=== PATIENT | female | born 1960 | race American Indian/Alaskan Native ===

== ENCOUNTER 2021-03-29 20:57 | Emergency (ER) | payer OTHER ==
[~2021-03-29] VITALS: Ht 170.2 cm; Wt 97.5 kg
[~2021-03-29 20:57] MED LIST: CYAN500 PO; ESTR.05P; FISH1000; HYDCHL12.5; LEVSOD100; METF500; MULVITMIND; VITB100
[2021-03-29] MEDS ORDERED: IRON18 MG (21:43)
[2021-03-29] MEDS ORDERED: JARDIANCE10 MG (21:44)
[2021-03-29] MEDS ORDERED: PROM25 (21:44)
[2021-03-29] MEDS ORDERED: OMEP20ER (21:45)
== END 2021-03-29 23:27 | disposition home or self-care (01) ==
LOC: ER 20:57
DX: U07.1 COVID-19 (principal); E11.9 Type 2 diabetes mellitus without complications; Z88.8 Allergy status to other drugs, medicaments and biological substances; Z91.018 Allergy to other foods; Z79.899 Other long term (current) drug therapy; Z79.84 Long term (current) use of oral hypoglycemic drugs
CPT/HCPCS: 99283

== ENCOUNTER 2021-03-30 12:49 | Emergency (ER) | payer OTHER ==
[~2021-03-30] VITALS: Ht 172.7 cm; Wt 97.5 kg
[~2021-03-30 12:49] MED LIST changes: +IRON18 MG; +JARDIANCE10 MG; +OMEP20ER; +PROM25
== END 2021-03-30 14:45 | disposition home or self-care (01) ==
LOC: ER 12:49
DX: U07.1 COVID-19 (principal); E11.9 Type 2 diabetes mellitus without complications; E03.9 Hypothyroidism, unspecified; Z88.8 Allergy status to other drugs, medicaments and biological substances; Z91.018 Allergy to other foods; Z79.899 Other long term (current) drug therapy; Z79.84 Long term (current) use of oral hypoglycemic drugs
CPT/HCPCS: 99282

== ENCOUNTER 2021-04-05 12:41 | Inpatient (IN) | payer OTHER ==
[~2021-04-05] VITALS: Ht 170.2 cm; Wt 119.3 kg
[2021-04-05 13:05] LABS: BASOPHILS ABSOLUTE AUTO 0.01 K/mm3 (0.00-0.23); BASOPHILS PERCENT AUTO 0 % (0-2); EOSINOPHILS ABSOLUTE AUTO 0.03 K/mm3 (0.00-0.68); EOSINOPHILS PERCENT AUTO 1 % (0-6); Hematocrit 34.9 % (33.0-51.0); Hemoglobin 11.7 g/dL (11.5-16.0); IMMATURE GRAN ABSOLUTE AUTO 0.05 K/mm3 (0.00-0.10); IMMATURE GRAN PERCENT AUTO 1 % (0-1); LYMPHOCYTES ABSOLUTE AUTO 0.17 K/mm3 (0.84-5.20); LYMPHOCYTES PERCENT AUTO 3 % (21-46); MONOCYTES ABSOLUTE AUTO 0.11 K/mm3 (0.16-1.47); MONOCYTES PERCENT AUTO 2 % (4-13); Mean Corpuscular HGB 28.7 pg (26.0-34.0); Mean Corpuscular HGB Conc 33.5 g/dL (31.5-36.5); Mean Corpuscular Volume 86 fL (80-100); Mean Platelet Volume 10.5 fL (9.1-12.4); NEUTROPHILS ABSOLUTE AUTO 4.69 K/mm3 (1.96-9.15); NEUTROPHILS PERCENT AUTO 93 % (41-73); NRBC ABSOLUTE 0.02 K/mm3 (0.00-0.02); NRBC Auto 0.4 /100 WBC (0.0-0.2); Platelet Count 119 K/mm3 (150-400); RDW Coefficient Variation 13.6 % (11.7-14.2); RDW Standard Deviation 41.8 fL (35.1-46.3); Red Blood Cell Count 4.07 M/mm3 (3.80-5.20); White Blood Cell Count 5.06 K/mm3 (4.00-11.30)
[2021-04-05 13:23] LABS: Albumin, Blood 2.4 g/dL (3.4-5.0); Albumin/Globulin Ratio 0.6 (0.8-1.8); Bun/Creatinine Ratio 25.5 (12.0-20.0); Calcium, Blood 8.4 mg/dL (8.5-10.1); Creatinine, Blood 1.02 mg/dL (0.40-1.00); Potassium, Blood 3.8 mmol/L (3.5-5.5); Total Protein, Blood 6.4 g/dL (6.4-8.2)
[2021-04-05 13:31] LABS: International Normalized Ratio 1.11; Prothrombin Time Results 11.9 Sec (9.7-11.5)
[2021-04-05 13:59] LABS: Base Excess Venous -2.2 mmol/L; Bicarbonate Venous 22.3 mmol/L (24.0-30.0); PCO2 Venous 37.8 mmHg (38-42); PO2 Venous 42.3 mmHg (38-42); pH Blood Venous 7.39 (7.34-7.37)
[2021-04-05 17:22] LABS: Source, Urine Catheter
[2021-04-05 17:39] LABS: Appearance, Urine Clear (Clear); Bilirubin, Urine Neg (Neg); Blood, Urine 1+ (Neg); Color, Urine Yellow (P-Yellow); Glucose Qualitative, Urine 4+ (Neg); Ketones, Urine 2+ (Neg); Leukocyte Esterase, Urine 1+ (Neg); Nitrite, Urine Neg (Neg); Protein, Urine 1+ (Neg); Specific Gravity, Urine 1.015 (1.003-1.022); Urobilinogen, Urine NORM (Normal)
[2021-04-05 17:48] LABS: Red Blood Cells, Urine 0-2 /hpf (0-2)
[2021-04-05 17:49] LABS: Bacteria Mod /hpf; Squamous Epithelial Cells Few /hpf (Few)
--- NOTE | 2021-04-05 19:28 | NUR ---
SHIFT SUMMARY PT IS ON CPAP 15 WITH FIO2 75% AND SPO2 IS 96%. PT REMAINS STABLE.PT WAS ABLE TO RESPOND TO ADMISSION QUESTIONS ACCORDINGLY. PT IS ALERT AND ORIENTED X 4.
[2021-04-06 04:07] LABS: BASOPHILS PERCENT AUTO 0 % (0-2); EOSINOPHILS PERCENT AUTO 0 % (0-6); Hematocrit 32.3 % (33.0-51.0); Hemoglobin 10.6 g/dL (11.5-16.0); IMMATURE GRAN ABSOLUTE AUTO 0.04 K/mm3 (0.00-0.10); IMMATURE GRAN PERCENT AUTO 1 % (0-1); LYMPHOCYTES ABSOLUTE AUTO 0.15 K/mm3 (0.84-5.20); LYMPHOCYTES PERCENT AUTO 5 % (21-46); MONOCYTES ABSOLUTE AUTO 0.06 K/mm3 (0.16-1.47); MONOCYTES PERCENT AUTO 2 % (4-13); Mean Corpuscular HGB 28.4 pg (26.0-34.0); Mean Corpuscular HGB Conc 32.8 g/dL (31.5-36.5); Mean Corpuscular Volume 87 fL (80-100); NEUTROPHILS ABSOLUTE AUTO 2.98 K/mm3 (1.96-9.15); NEUTROPHILS PERCENT AUTO 92 % (41-73); Platelet Count 111 K/mm3 (150-400); RDW Coefficient Variation 13.8 % (11.7-14.2); RDW Standard Deviation 42.8 fL (35.1-46.3); Red Blood Cell Count 3.73 M/mm3 (3.80-5.20); White Blood Cell Count 3.23 K/mm3 (4.00-11.30)
[2021-04-06 04:36] LABS: Albumin/Globulin Ratio 0.5 (0.8-1.8); Bilirubin, Total 0.6 mg/dL (0.1-1.0); Bun/Creatinine Ratio 27.3 (12.0-20.0); Creatinine, Blood 0.99 mg/dL (0.40-1.00); Potassium, Blood 4.3 mmol/L (3.5-5.5)
--- NOTE | 2021-04-06 06:22 | NUR ---
SHIFT SUMMARY ASSUMED CARE OF PT AT 1900. PT IS A/OX4. HEART SOUNDS REGULAR, LUNG SOUNDS ARE DIMINISHED WITH CRACKLES IN THE BASES. PT WAS TITRATED FROM 70% CPAP TO 65%. SATURATIONS REMAINED ABOVE 90%. PT WAS ON BEDREST AND USED THE BEDPAN. PT IS A 1P ASSIT IN BED. CALL LIGHT IN REACH, BED IN LOWEST POSTION.
--- NOTE | 2021-04-06 18:24 | NUR ---
PT REMAINS ON CPAP, 15L @ 65%, MAINTAINING IN THE LOW 90'S. DIET TOLERATED ORDER RECEIVED, SOFT DINNER TRAY AT BEDSIDE BUT PT IS DECLINING TO EAT AT THIS TIME. NO ACUTE CHANGES NOTED THIS SHIFT, WILL CONTINUE TO MONITOR AND REPORT TO ONCOMING RN.
--- NOTE | 2021-04-06 19:20 | NUR ---
ASSUMED CARE. PATIENT WANTED TO ATTEMPT GETTING UP TO BSC. THIS WAS A FAILED ATTEMPTED HER RESPIRATIONS INCREASED TO THE 50'S, AND HER SATS DROPPED TO LOW 80'S ON THE CPAP. BED APPIAH WAS USED INSTEAD. PLACED ON HF TUBING SHE WANTED TO EAT. THIS LASTED ONLY FOR 10-15 MINUTES BEFORE SHE DESATED AGAIN AND HAD TO BE PLACED BACK ON THE CPAP. SHE GOT 25% OF HER MEAL DOWN. STATED SHE HAD A HARD TIME EATING DUE TO OXYGEN DEMAND. BACK ON CPAP HAD TO INCREASE TO 75% O2 TO KEEP SATS UP. DENIES PAIN. BRIDGE OF NOSE BROKEN DOWN DUE TO MASK. SPOKE TO RT REGARDING THIS. LUNG SOUNDS VERY TIGHT IN BASES. COUGH OCCATIONAL DRY HACKY. HR TACHY AT TIMES. VERY ILL APPEARING. CALL LIGHT IS IN REACH.
--- NOTE | 2021-04-06 22:00 | NUR ---
PATIENT HOLDING ON 15L 75% O2. SATS 90-92%. SLEEPING. DENIES ANY NEEDS. TACHY IN THE LOW 100'S. WILL CONTINUE TO MONIOTOR.
--- NOTE | 2021-04-07 00:31 | NUR ---
WATER GIVEN BY TRACK REPAIR WORKER. SATS HOLDING ON 15L 75% O2. TACHY IN THE LOW 100'S. DENIES ANY NEEDS AT THIS TIME.
--- NOTE | 2021-04-07 02:00 | NUR ---
BED APPIAH, TROY PAD CHANGE. REPOSITION UP IN BED. WATER GIVEN. CPAP IN PLACE NO CHANGE TO SETTING. CALL LIGHT IN REACH.
[2021-04-07 04:06] LABS: Hematocrit 35.5 % (33.0-51.0); Hemoglobin 11.6 g/dL (11.5-16.0); Mean Corpuscular HGB 28.2 pg (26.0-34.0); Mean Corpuscular HGB Conc 32.7 g/dL (31.5-36.5); Mean Corpuscular Volume 86 fL (80-100); Mean Platelet Volume 10.5 fL (9.1-12.4); Platelet Count 112 K/mm3 (150-400); RDW Coefficient Variation 14.4 % (11.7-14.2); RDW Standard Deviation 43.7 fL (35.1-46.3); Red Blood Cell Count 4.11 M/mm3 (3.80-5.20); White Blood Cell Count 5.38 K/mm3 (4.00-11.30)
--- NOTE | 2021-04-07 04:16 | NUR ---
RESTING COMFORTABLY, DENIES ANY NEEDS. VS WNL. AFEBRILE. NO CHANGE TO O2 DEMAND. WILL CONTINUE TO MONITOR.
[2021-04-07 04:40] LABS: Albumin, Blood 2.1 g/dL (3.4-5.0); Albumin/Globulin Ratio 0.5 (0.8-1.8); Bilirubin, Total 0.7 mg/dL (0.1-1.0); Bun/Creatinine Ratio 18.9 (12.0-20.0); C-REACTIVE PROTEIN, EXT RANGE 12.5 mg/dL (0.000-0.300); Calcium, Blood 8.3 mg/dL (8.5-10.1); Creatinine, Blood 1.06 mg/dL (0.40-1.00); Globulin, Blood 4.1 g/dL (2.2-4.0); Percent Saturation 8.6 % (15.0-50.0); Potassium, Blood 3.9 mmol/L (3.5-5.5); Thyroid Stimulating Hormone 0.307 uIU/mL (0.360-4.800); Total Protein, Blood 6.2 g/dL (6.4-8.2)
--- NOTE | 2021-04-07 05:56 | NUR ---
SHIFT SUMMARY: VERY ILL APPEARING 61 YEAR OLD, HERE FOR COVID-19. LUNG SOUNDS VERY TIGHT AND DIMINISHED IN THE BASES. ON CPAP 15L 75% O2 BARLEY HOLDING SATS AT 90%. DESATS WITH VERY SLIGHT MOVEMENTS, AND TALKING. TO TAKE A DRINK SHE DESATS DOWN TO 79% AND TAKES 10 OR MORE MINUTES TO RECOVER. POSITIONED ON SIDE DOES NOT IMPROVE HER BREATHING. SHE ATTEMPTED TO EAT DINNER RUNNING HIGH FLOW MAX AND WAS ONLY ABLE TO EAT 25% BEFORE HAIVNG TO BE PLACED BACK ON CPAP. STARTING TO RUN SINUS TACH AT 100-107. RESPIRATIONS RUNNING MID TO HIGH 20'S AND DOES CLIMB RAPIDLY WHEN SHE TAKES THE MASK OFF FOR A DRINK. BS AT DINNER 232. TELE SINUS. WILL CONTINUE TO MONITOR. CALL LIGHT IS IN REACH.
--- NOTE | 2021-04-07 08:00 | NUR ---
PT LAYING IN BED WITH EYES CLOSED, SHE WAKES UP WHEN IN ROOM, WANTS TO HAVE WATER. REMOVED MASK FOR A FEW SECONDS TO GIVEN HER A DRINK, SHE IMMEDIATELY DROPPED TO 85%, NO DIFF SWALLOWING NOTED, SEEMS VERY TIRED. LUNGS ARE DIM AND TIGHT, SHE HAS AN OCC NONPRODUCTIVE COUGH, RUNNING SR PER MONITOR, SEE STRIP, NO EDEMA NOTED, PPP+2, CAP REFILL <3SEC, VS STABLE, AFEBRILE, IV SITE IS CLEAR AND PATENT, BTX4, ABD FLAT SOFT NONTENDER, VOIDS VIA BEDPAN AT THIS TIME, SKIN C/W/D, MAEW, MARLENE, CALL LIGHT IN REACH.
--- NOTE | 2021-04-07 15:58 | NUR ---
PLACED PT ON AIRVO FOR LUNCH, SHE ATE A PUDDING AND DRANK AN ENSURE. RT IN ROOM, PLACED BACK ON MASK. RESTING QUIETLY AT THIS TIME, CALL LIGHT IN REACH.
--- NOTE | 2021-04-07 18:28 | NUR ---
PT WAS ABLE TO GO ONTO [employer] FOR LUNCH AND DINNER, SHE DRANK AN ENSURE AND A PROTEIN CUP FOR DINNER, SATS STAYED IN THE MID 80'S DURRING THIS TIME. SHE WAS PLACED BACK ON CPAP AND ALSO ENCOURAGED TO PRONE, SHE DID GET ONTO HER SIDE. SATS AT 90%. NO FURTHER CHANGES THIS SHIFT. CALL LIGHT IN REACH.
[2021-04-08 04:23] LABS: Hematocrit 33.1 % (33.0-51.0); Hemoglobin 10.7 g/dL (11.5-16.0); Mean Corpuscular HGB 28.5 pg (26.0-34.0); Mean Corpuscular HGB Conc 32.3 g/dL (31.5-36.5); Mean Corpuscular Volume 88 fL (80-100); Mean Platelet Volume 10.2 fL (9.1-12.4); Platelet Count 101 K/mm3 (150-400); RDW Coefficient Variation 14.6 % (11.7-14.2); RDW Standard Deviation 46.3 fL (35.1-46.3); Red Blood Cell Count 3.76 M/mm3 (3.80-5.20); White Blood Cell Count 4.33 K/mm3 (4.00-11.30)
[2021-04-08 04:41] LABS: Albumin, Blood 1.9 g/dL (3.4-5.0); Albumin/Globulin Ratio 0.5 (0.8-1.8); Bilirubin, Total 0.7 mg/dL (0.1-1.0); Bun/Creatinine Ratio 17.4 (12.0-20.0); Calcium, Blood 8.6 mg/dL (8.5-10.1); Creatinine, Blood 1.09 mg/dL (0.40-1.00); Globulin, Blood 4.1 g/dL (2.2-4.0); Potassium, Blood 3.8 mmol/L (3.5-5.5)
--- NOTE | 2021-04-08 05:06 | NUR ---
SHIFT SUMMARY AOX3. PT HAS BEEN FEELING ANXIOUS AT THE BEGINNING OF THE SHIFT. SHE ALSO REPORTS DRY COUGH SINCE AFTER DINNER BUT HAS IMPROVED OVERNIGHT. SHE ALSO DESAT ON 78-85% WITH ACTIVITY AND EXERTION IN BED AT THE BEGINNING OF THE SHIFT. I ADMNISTER ATIVAN X1 BEFORE SLEEP WHICH APPEARS TO HELPED. PT SLEPT GOOD AFTER MIDNIGHT. EASILY AROUSABLE AND AOX3 WHEN AWAKEN. PT'S O2 SAT REMAIN ON 93-96% AT REST ON CPAP AT 15L WITH FIO2 OF 100. PT DENIES CHEST PAIN. REPORTS DISCOMFORT FROM HER NOSE. USED BEDPAN TO VOID WITH 1 ASSIST. PT WAS ABLE TO HELP IN MOVING AROUND. UA OUTPUT OF 650 ML. USE CALL LIGHT APPROPRIATELY. REPOSITIONED Q2. ENC PRONING/LYING ON SIDE. CALL LIGHT WITHIN REACH. WILL PROVIDE REPORT TO ONCOMING NURSE.
[2021-04-08 13:36] LABS: PCO2 Arterial 36 mmHg (35-45); PO2 Arterial 52 mmHg (80-100); pH Blood Arterial 7.47 (7.35-7.45)
--- NOTE | 2021-04-08 14:44 | NUR ---
THIS NURSE THROUGHOUT THE SHIFT HAS OFFERED HELPING MOVE THE PATIENT TO HER SIDE OR PRONING HER. SHE HAS REFUSED VERBALLY AND THE PATIENT PHYSICALLY WOULDN'T TURN OVER. CALLED RT WHEN SHE STARTED TO DESAT OXYGEN IN THE LOW 80%. SHE IS CURRENTLY ON BIPAP FROM RT. SHE WILL BE MOVING TO PCU ROOM 4 AND ICU STATUS. WAITING FOR BED TO BE MADE TO TRANSFER PATIENT.
[2021-04-08 16:31] LABS: PO2 Arterial 38 mmHg (80-100); pH Blood Arterial 7.38 (7.35-7.45)
--- NOTE | 2021-04-08 16:43 | NUR ---
1525 TO PRESENT: PT EMERGENLTY TRANSFERED TO PCU 4-ICU STATUS. PT COVID+-IN RESPIRATORY DISTRESS-PO2 50'S ON BIPAP 07/01 [address] FIO2 100%. DR. WELLINGTON CONSULTED. 1535: DR. WELLINGTON AT BEDSIDE. PT FAMILY AWARE OF TRANSFER. 1546: PT MED WITH ETOMIDATE 20 MG IVP X1 AND SUCCS 100 MG IVP X 1 IN PREP FOR RSI. 1548: SATS DOWN TO 55% PT BAGGED-SATS RETURNED TO 91%.1550 PT GIVEN PROPOFOL 100 MG IVP X [address] WELLINGTON. 1552: PT SUCCESSFULLY INTUBATED WITH 8.0 ETT/26 @ LIP-GOOD COLOR CHANGE AND BILATERAL BREATH SOUNDS AUSCULTATED. 1600: SOFT BILATERAL WRIST RESTAINTS PLACED. PT ASYNCHRONOUS WITH VENT-MED WITH FENTANYL 100 MCG IVP X [address] WELLINGTON ORDER. 1615: PT ASYNCHRONOUS WITH VENT AND NOW HYPOTENSIVE-NIMBEX AND LEVOPHED DRIPS REQUESTED FROM PHARMACY. 1620: PT REMAINS ASYNCHRONOUS WITH VENT AND HYPOTENSIVE.MED WITH NEOSYNEPHRINE PUSH 150 MCG IVP X 1 AND ROCURONIUM 50 MG IVP X 1. 1625: LEVOPHED DRIP INITIATED @ 5 MCG/MIN. PICC LINE TO BE PLACED. ABG DONE. CXR DONE AND ETT & OGT PLACEMENT CONFIRMED. 1650: NIMBEX DRIP INITIATED. 1655: PT DAUGHTER NAREN UPDATED TO CURRENT STATUS AND PLAN OF CARE.
--- NOTE | 2021-04-08 16:55 | NUR ---
SPUTUM SENT FOR GRAM STAIN AND CULTURE.
[2021-04-08 18:03] LABS: Source, Urine Catheter
[2021-04-08 18:09] LABS: Appearance, Urine Clear (Clear); Bilirubin, Urine Neg (Neg); Blood, Urine 1+ (Neg); Color, Urine Yellow (P-Yellow); Glucose Qualitative, Urine 3+ (Neg); Ketones, Urine 1+ (Neg); Leukocyte Esterase, Urine Neg (Neg); Nitrite, Urine Neg (Neg); Protein, Urine 2+ (Neg); Urobilinogen, Urine NORM (Normal)
[2021-04-08 18:40] LABS: Bacteria Few /hpf; Squamous Epithelial Cells Few /hpf (Few)
--- NOTE | 2021-04-08 18:43 | NUR ---
SHIFT SUMMARY SEE PREVIOUS NOTE FOR MORE SHIFT INFO. PT REMAINS INTUBATED AND SEDATED. VENT SETTINGS AC 24, TV 350, PEEP 18, FIO2 100%. PT CONTINUED TO BE ASYNCHRONIS WITH THE VENT. NIMBEX STARTED AT 1 MCG/KG/MIN. BIS MONITOR UNABLE TO PROVIDE READING DESPITE [address] MONITOR STICKERS. PROPOFOL INFUSING AT 60 MCG/KG/MIN. PT REMAINS HYPOTENSIVE. LEVOPHED INFUSING AT 8 MCG/KG/MIN. PICC PLACED TO SANIYA. PG REMAINS IN PLACE TO DESTINY. OGT IN PLACE, CLAMPED. REHMAN PLACED. PT GRIMMACES WITH ORAL CARE AND SUCTION. SBW RESTRAINTS IN PLACE. WILL CONTINUE TO MONITOR AND REPORT OFF TO ONCOMING RN.
[2021-04-09 04:17] LABS: BASOPHILS ABSOLUTE AUTO 0.01 K/mm3 (0.00-0.23); BASOPHILS PERCENT AUTO 0 % (0-2); EOSINOPHILS ABSOLUTE AUTO 0.08 K/mm3 (0.00-0.68); EOSINOPHILS PERCENT AUTO 1 % (0-6); Hematocrit 34.2 % (33.0-51.0); Hemoglobin 10.8 g/dL (11.5-16.0); IMMATURE GRAN ABSOLUTE AUTO 0.04 K/mm3 (0.00-0.10); IMMATURE GRAN PERCENT AUTO 1 % (0-1); LYMPHOCYTES ABSOLUTE AUTO 0.28 K/mm3 (0.84-5.20); LYMPHOCYTES PERCENT AUTO 4 % (21-46); MONOCYTES ABSOLUTE AUTO 0.19 K/mm3 (0.16-1.47); MONOCYTES PERCENT AUTO 3 % (4-13); Mean Corpuscular HGB 28.4 pg (26.0-34.0); Mean Corpuscular HGB Conc 31.6 g/dL (31.5-36.5); Mean Corpuscular Volume 90 fL (80-100); Mean Platelet Volume 10.2 fL (9.1-12.4); NEUTROPHILS ABSOLUTE AUTO 6.51 K/mm3 (1.96-9.15); NEUTROPHILS PERCENT AUTO 92 % (41-73); Platelet Count 113 K/mm3 (150-400); RDW Standard Deviation 48.8 fL (35.1-46.3); White Blood Cell Count 7.11 K/mm3 (4.00-11.30)
[2021-04-09 05:04] LABS: Albumin, Blood 1.7 g/dL (3.4-5.0); Anion Gap 8 mmol/L (6-16); Blood Urea Nitrogen 24 mg/dL (8-24); Bun/Creatinine Ratio 11.5 (12.0-20.0); CO2, Blood 23 mmol/L (21-32); Calcium, Blood 8.2 mg/dL (8.5-10.1); Chloride, Blood 112 mmol/L (98-108); Cholesterol 63 mg/dL (50-200); Creatinine, Blood 2.09 mg/dL (0.40-1.00); Glomerular Filtration Rate 24 (60-); Glucose, Blood 251 mg/dL (70-99); Phosphorus, Blood 5.4 mg/dL (2.5-4.9); Potassium, Blood 4.5 mmol/L (3.5-5.5); Sodium, Blood 143 mmol/L (136-145); Triglycerides 177 mg/dL (30-160)
[2021-04-09 05:34] LABS: C-Reactive Protein, High Sens. >190.000 mg/L (0.000-3.000)
--- NOTE | 2021-04-09 06:10 | NUR ---
SHIFT SUMMARY NO ACUTE CHANGES OVERNIGHT. HAVE MADE MINIMAL CHANGE IN DRIPS, SEE ICU FLOWSHEET. ASSESSMENT IS CHARTED. VSS. WILL CONTINUE TO MONITORL.
--- NOTE | 2021-04-09 16:53 | NUR ---
SHIFT SUMMARY NO ACUTE CHANGES THIS SHIFT. PT REMAINS INTUBATED, SEDATED AND PARALYZED. PT VENT SETTINGS AC 24, TV 350, PEEP 18, FIO2 65%. PT WITH PICC TO SANIYA C/D/I. PROPOFOL INFUSING AT 60 MCG/KG/MIN, NIMBEX 1 MCG/KG/MIN, LEVOPHED 4 MCG/MIN, AND NS AT 100 ML/HR. UNABLE TO OBTAIN ACCURATE BIS READING THIS SHIFT. TOF HAS REMAINED 0/4. OGT IN PLACE WITH TF STARTED THIS AFTERNOON AT 10 ML/HR. REHMAN IN PLACE WITH MINIMAL AMOUNT OF DARK YELLOW OUTPUT NOTED. WILL CONTINUE TO MONITOR AND REPORT OFF TO ONCOMING RN.
[2021-04-10 04:06] LABS: BASOPHILS ABSOLUTE AUTO 0.01 K/mm3 (0.00-0.23); BASOPHILS PERCENT AUTO 0 % (0-2); EOSINOPHILS PERCENT AUTO 0 % (0-6); Hematocrit 35.1 % (33.0-51.0); Hemoglobin 10.9 g/dL (11.5-16.0); IMMATURE GRAN ABSOLUTE AUTO 0.07 K/mm3 (0.00-0.10); IMMATURE GRAN PERCENT AUTO 1 % (0-1); LYMPHOCYTES ABSOLUTE AUTO 0.16 K/mm3 (0.84-5.20); LYMPHOCYTES PERCENT AUTO 1 % (21-46); MONOCYTES ABSOLUTE AUTO 0.33 K/mm3 (0.16-1.47); MONOCYTES PERCENT AUTO 3 % (4-13); Mean Corpuscular HGB 28.2 pg (26.0-34.0); Mean Corpuscular HGB Conc 31.1 g/dL (31.5-36.5); Mean Corpuscular Volume 91 fL (80-100); Mean Platelet Volume 11.1 fL (9.1-12.4); NEUTROPHILS ABSOLUTE AUTO 11.38 K/mm3 (1.96-9.15); NEUTROPHILS PERCENT AUTO 95 % (41-73); Platelet Count 131 K/mm3 (150-400); RDW Coefficient Variation 15.1 % (11.7-14.2); RDW Standard Deviation 50.7 fL (35.1-46.3); Red Blood Cell Count 3.86 M/mm3 (3.80-5.20); White Blood Cell Count 11.95 K/mm3 (4.00-11.30)
[2021-04-10 04:24] LABS: Albumin, Blood 1.7 g/dL (3.4-5.0); Anion Gap 12 mmol/L (6-16); Blood Urea Nitrogen 42 mg/dL (8-24); Bun/Creatinine Ratio 10.6 (12.0-20.0); CO2, Blood 17 mmol/L (21-32); Calcium, Blood 7.6 mg/dL (8.5-10.1); Chloride, Blood 109 mmol/L (98-108); Creatinine, Blood 3.98 mg/dL (0.40-1.00); Glomerular Filtration Rate 11 (60-); Glucose, Blood 436 mg/dL (70-99); Phosphorus, Blood 7.2 mg/dL (2.5-4.9); Potassium, Blood 4.8 mmol/L (3.5-5.5); Sodium, Blood 138 mmol/L (136-145)
--- NOTE | 2021-04-10 05:19 | NUR ---
SHIFT SUMMARY PATIENT HAS DONE WELL THRU NIGHT. DECREASED FIO2 TO CURRENT 50%. LEVOPHED DOWN TO 3 MCG/MIN. NO URINE OUTPUT THRU NIGHT, HOWEVER. ASSESSMENT IS CHARTED. VSS. WILL CONTINUE TO MONITOR.
--- NOTE | 2021-04-10 08:00 | NUR ---
ASSUMED CARE FROM NOC SHIFT. PATIENT REMAINS INTUBATED WITH SEDATION/PARALYTIC. TOF 0/4, NIMBEX 1MCG. VSS WITH LEVOPHED GTT AT 3MCG. NO CHANGES IN VENT SETTINGS, TITRATED FIO2 45% TO KEEP SATS >88%. REMAINS IN PRONE POSITION, WILL REPOSITION HEAD AND ARMS Q2 HRS. NO SECRETIONS VIA ETT. TOLERATING TUBE FEEDS AT GOAL RATE 10ML/HR. REHMAN IN PLACE BUT OLIGURIA NOTED WITH FERNANDO COLOR URINE. INCREASE BLOOD SUGARS NOTED. WILL AWAIT FOR NEW ORDERS PER . CONTINUE TO MONITOR AND TX PRN.
--- NOTE | 2021-04-10 10:43 | NUR ---
NEW ORDERS TO TREAT BLOOD SUGAR, HUMULIN R 10UNITS IV X1 AND RECHECK BLOOD SUGARS EVERY 2 HRS. NEPHROLOGY CONSULT ORDERED; DR ALVARADO.
[2021-04-10 14:29] LABS: Glucose, Blood 496 mg/dL (70-99)
--- NOTE | 2021-04-10 16:13 | NUR ---
RETURNED DAUGHTER MONIQUE'S CALL. ANSWERED ALL QUESTIONS. INFORM HERE THAT DR WELLINGTON WILL BE CALLING WITH UPDATE.
[2021-04-10 17:17] LABS: Glucose, Blood 533 mg/dL (70-99)
--- NOTE | 2021-04-10 18:35 | NUR ---
SHIFT SUMMARY PATIENT REMAINS INTUBATED WITH VENT SETTINGS AC 24/350/16/50% WITH SATS 91%. SEDATED WITH PROPOFOL AND NIMBEX PARALYTIC WITH TOF 4/4 AND BIS 40-50'S. LUNGS REMAIN CLEAR, VERY SCANT SECRETIONS VIA ETT. ABD ROUND/HYPO BT'S, TOLERATING TUBE FEEDS AT GOAL RATE 10ML/HR. REHMAN PATENT WITH ONLY 40CC OUT. DR ALVARADO CONSULTED. BP STABILIZING AND ABLE TO TITRATE LEVOPHED TO STANDBY. BLOOD SUGARS HIGH >500 TODAY. STARTED INSULIN GTT AT 10U/HR AND TITRATING TO EFFECT; BLOOD SUGARS DECREASING <500. CONTINUE TO MONITOR AND TX PRN. WILL REPORT OFF TO NOC SHIFT.
[2021-04-11 03:49] LABS: BASOPHILS ABSOLUTE AUTO 0.02 K/mm3 (0.00-0.23); BASOPHILS PERCENT AUTO 0 % (0-2); EOSINOPHILS ABSOLUTE AUTO 0.01 K/mm3 (0.00-0.68); EOSINOPHILS PERCENT AUTO 0 % (0-6); Hematocrit 33.8 % (33.0-51.0); Hemoglobin 10.7 g/dL (11.5-16.0); IMMATURE GRAN ABSOLUTE AUTO 0.17 K/mm3 (0.00-0.10); IMMATURE GRAN PERCENT AUTO 1 % (0-1); LYMPHOCYTES ABSOLUTE AUTO 0.16 K/mm3 (0.84-5.20); LYMPHOCYTES PERCENT AUTO 1 % (21-46); MONOCYTES ABSOLUTE AUTO 0.52 K/mm3 (0.16-1.47); MONOCYTES PERCENT AUTO 4 % (4-13); Mean Corpuscular HGB 28.3 pg (26.0-34.0); Mean Corpuscular HGB Conc 31.7 g/dL (31.5-36.5); Mean Corpuscular Volume 89 fL (80-100); Mean Platelet Volume 10.5 fL (9.1-12.4); NEUTROPHILS PERCENT AUTO 93 % (41-73); Platelet Count 137 K/mm3 (150-400); RDW Coefficient Variation 15.1 % (11.7-14.2); RDW Standard Deviation 49.8 fL (35.1-46.3); Red Blood Cell Count 3.78 M/mm3 (3.80-5.20); White Blood Cell Count 12.98 K/mm3 (4.00-11.30)
[2021-04-11 04:19] LABS: Albumin, Blood 1.8 g/dL (3.4-5.0); Anion Gap 12 mmol/L (6-16); Blood Urea Nitrogen 60 mg/dL (8-24); Bun/Creatinine Ratio 11.7 (12.0-20.0); CO2, Blood 18 mmol/L (21-32); Chloride, Blood 106 mmol/L (98-108); Creatinine, Blood 5.15 mg/dL (0.40-1.00); Glomerular Filtration Rate 9 (60-); Glucose, Blood 333 mg/dL (70-99); Potassium, Blood 4.3 mmol/L (3.5-5.5); Sodium, Blood 136 mmol/L (136-145)
[2021-04-11 04:26] LABS: Phosphorus, Blood 8.4 mg/dL (2.5-4.9)
--- NOTE | 2021-04-11 06:02 | NUR ---
SHIFT SUMMARY PATIENT HAS DONE WELL THRU NIGHT. INITIALLY HAD SOME DESATURATION, SPO2 87-89, HAD TO INCREASE FIO2 TO 80%, HAVE SLOWLY DECREASED THRU NIGHT TO CURRENT SET OF 65%. OTHERWISE HAS TOLERATED PRONING WELL. RESIDUALS HAVE BEEN HIGHER, 220 ML WITH 04:00 CHECK. DECREASED PROPOFOL TO 55 MCG/KG/MIN, BIS READING IN 30S, NOW IN 40S, UP TO 50S WITH ACTIVITY. NIMBEX MAINTAINED @ 1, TRAIN OF 4 = 07/28, MAINTAINED LEVOPHED @ 3 MCG/MIN. INSULIN WAS RAISED WITH 05:00 CHECK, CBG INCREASED TO 279. DISCUSSED EARLIER WITH DR PHILLIPS, GOAL IS 180-200, WILL PLACE NURSE NOTIFY ORDER. ASSESSMENT IS CHARTED. VSS. WILL CONTINUE TO MONITOR.
--- NOTE | 2021-04-11 08:00 | NUR ---
Received report from Jimmy BARAJAS. Patient is Intubated, sedated, and paralyzed. She has 8.0 ET and is 25 cm at teeth with vent settings of 24/350/50/16 and sats of low 90%'s. She has PICC line to SANIYA dressing intact and site WNL's and is infusing Propofol 50 mcg/kg/min, Nimbex 1 mcg/kg/min, Levophed 3 mch/min, regular insulin at 10 units /hr. She has 14Fr Marie draining to gravity scant amounts of urine. She has OG in place with VHP infusing at goal rate of 10 ml/hr and 30 ml water flushes q4. Charge Nurse called Dr rachel jeff to cell phone this am.
[2021-04-11 09:33] LABS: PCO2 Arterial 48.9 mmHg (35-45); PO2 Arterial 113 mmHg (80-100); pH Blood Arterial 7.12 (7.35-7.45)
--- NOTE | 2021-04-11 10:03 | NUR ---
Called Dr Hopper with ABG results and she came to see patient. Adjustments made and current settings of 24/350/60/14 and sats Low 90%. She wants Propofol weaned off and started on PRN Ativan and Precedex starting at 1.0 mcg/kg/hr. Patient received one sided bath prior to un-proning patient. Remains paralyzed and sedated currently.
[2021-04-11 10:09] LABS: Cholesterol 99 mg/dL (50-200); Triglycerides 357 mg/dL (30-160)
--- NOTE | 2021-04-11 11:27 | NUR ---
Propofol was stopped 2mg Ativan given and Precedex gtt started BIS 20. Levophed gtt reduced to 2 mcg/min. Nimbex remains at 1 mcg/kg/min and TO4 0/4. Bicarb gtt in free water started at 100 ml/hr. Insulin gtt decreased to 8 for 224 cbg.
--- NOTE | 2021-04-11 13:05 | NUR ---
Report taken from Talon BARAJAS. Bedbath completed. Oral care done. Sao2 down to 87-88% after unproning. Pt. turned to Rt and Lt sides with no chg's in SAO2. Pt remains on Lt. RT. notified and FIO2 increased to 70% with ALEX@ remaining 91%. BIS 23-24. CBG 220 and will con't Insulin Gtt at 8u/hr. SBP > 100 on 2mcg/min of Levophed. Will keep SBP > [address] Guillermina armendariz. Will be giving a lasix dose today and call to with U/O.
--- NOTE | 2021-04-11 15:14 | NUR ---
Lasix given at 1400 with no U/O as yet. No acute chg in status. Mickey. 70% FIO2 with ALEX@ 94-95%. Will con't Insulin Gtt at 8u/hr atthis time. Will draw blood for CPK, Lactic acid,Renal Panel.
[2021-04-11 15:33] LABS: Base Excess Venous -13.3 mmol/L; Bicarbonate Venous 14.3 mmol/L (24.0-30.0); PCO2 Venous 44.5 mmHg (38-42); PO2 Venous 49.7 mmHg (38-42); pH Blood Venous 7.15 (7.34-7.37)
[2021-04-11 16:29] LABS: Albumin, Blood 1.5 g/dL (3.4-5.0); Anion Gap 17 mmol/L (6-16); Blood Urea Nitrogen 71 mg/dL (8-24); Bun/Creatinine Ratio 13.2 (12.0-20.0); CO2, Blood 16 mmol/L (21-32); Calcium, Blood 7.8 mg/dL (8.5-10.1); Chloride, Blood 104 mmol/L (98-108); Creatinine, Blood 5.38 mg/dL (0.40-1.00); Glomerular Filtration Rate 8 (60-); Glucose, Blood 233 mg/dL (70-99); Potassium, Blood 4.3 mmol/L (3.5-5.5); Sodium, Blood 137 mmol/L (136-145)
[2021-04-11 16:35] LABS: Phosphorus, Blood 8.2 mg/dL (2.5-4.9)
--- NOTE | 2021-04-11 18:10 | NUR ---
Orders noted from Dr. Sarmiento. No U/O since lasix given .Lasix repeate at this time. Bicarb gtt chg'd to 1/2 NS with 2 AMPS HCO3. All other infusions unchg'd. Need U/A when able. TO4 remains 0/4. BIS monitor ranges from 18-40 at times with no movement noted. Dr. Hopper here and new orders given.
--- NOTE | 2021-04-11 18:49 | NUR ---
Status report given to Dr. Sarmiento.
[2021-04-11 18:50] LABS: Base Excess Venous -12.8 mmol/L; Bicarbonate Venous 14.7 mmol/L (24.0-30.0); PCO2 Venous 46.3 mmHg (38-42); PO2 Venous 56.8 mmHg (38-42)
[2021-04-11 18:51] LABS: pH Blood Venous 7.15 (7.34-7.37)
--- NOTE | 2021-04-11 19:30 | NUR ---
REPORT RECEIVED-CARE ASSUMED GTT RATES AND VITALS NOTED IN FLOWSHEET. CONTINUE ASSESSMENTS AND CARE.
--- NOTE | 2021-04-11 20:47 | NUR ---
SURGE SHIFT ASSESSMENT DONE AND NOTED-BIS 40-6O. TO4 4 OUT OF 4. NO COUGH-NO GAG. PLAN TO PRONE OVERNIGHT. CONTINUE ASSESSMENTS AND CARE.
[2021-04-12 03:56] LABS: BASOPHILS PERCENT AUTO 0 % (0-2); EOSINOPHILS PERCENT AUTO 0 % (0-6); Hemoglobin 9.7 g/dL (11.5-16.0); IMMATURE GRAN ABSOLUTE AUTO 0.03 K/mm3 (0.00-0.10); IMMATURE GRAN PERCENT AUTO 1 % (0-1); LYMPHOCYTES ABSOLUTE AUTO 0.08 K/mm3 (0.84-5.20); LYMPHOCYTES PERCENT AUTO 2 % (21-46); MONOCYTES ABSOLUTE AUTO 0.15 K/mm3 (0.16-1.47); MONOCYTES PERCENT AUTO 4 % (4-13); Mean Corpuscular HGB 28.2 pg (26.0-34.0); Mean Corpuscular HGB Conc 32.3 g/dL (31.5-36.5); Mean Corpuscular Volume 87 fL (80-100); Mean Platelet Volume 11.5 fL (9.1-12.4); NEUTROPHILS ABSOLUTE AUTO 3.57 K/mm3 (1.96-9.15); NEUTROPHILS PERCENT AUTO 93 % (41-73); Platelet Count 75 K/mm3 (150-400); RDW Standard Deviation 48.3 fL (35.1-46.3); Red Blood Cell Count 3.44 M/mm3 (3.80-5.20); White Blood Cell Count 3.83 K/mm3 (4.00-11.30)
[2021-04-12 04:29] LABS: Albumin, Blood 1.7 g/dL (3.4-5.0); Anion Gap 12 mmol/L (6-16); Blood Urea Nitrogen 78 mg/dL (8-24); Bun/Creatinine Ratio 13.9 (12.0-20.0); CO2, Blood 18 mmol/L (21-32); Calcium, Blood 7.5 mg/dL (8.5-10.1); Chloride, Blood 102 mmol/L (98-108); Creatinine, Blood 5.63 mg/dL (0.40-1.00); Glomerular Filtration Rate 8 (60-); Glucose, Blood 286 mg/dL (70-99); Phosphorus, Blood 10.1 mg/dL (2.5-4.9); Potassium, Blood 6.2 mmol/L (3.5-5.5); Sodium, Blood 132 mmol/L (136-145)
--- NOTE | 2021-04-12 05:27 | NUR ---
AT BEDSIDE PLACING DIALYSIS CATH.
--- NOTE | 2021-04-12 06:07 | NUR ---
DIALYSIS CATH PLACEMENT DONE-FARM MARKETER PLACED CALL TO [facility]-ON THERE WAY.
--- NOTE | 2021-04-12 06:09 | NUR ---
DIALYSIS CATH DR WEEMS PLACED JOCELYN 16 CM DIALYSIS CATH TO RIGHT IJ. CHEST XRAY CONFIRMED PLACEMENT AND CATH GOOD TO USE.
--- NOTE | 2021-04-12 06:36 | NUR ---
END OF SHIFT PT REMAINS ON VENT-PARALYZED, SEDATED- GTTS, RATES AND VITALS NOTED IN FLOWSHEET. THIS AM- CRITICAL LABS CALLED TO DR. ALVARADO-AYO GIVEN PER ALISON-CARMENZA & RYDER GTT D/ENEDINA, DIALYSIS ORDERED. PT UNPRONED AT 0515 FOR PLACEMENT OF DIALYSIS CATH-IVORY POLISHER CALLED IN-DIALYSIS TODAY. ASSESSMENTS CHARTED IN SURGE SHIFT ASSESSMENTS. CONTINUE ASSESSMENTS AND CARE TILL REPORT OFF TO ONCOMING SHIFT RN.
--- NOTE | 2021-04-12 06:48 | NUR ---
FAMILY UPDATED BY DREDGE BOAT ENGINEER
[2021-04-12 07:59] LABS: PO2 Arterial 78.6 mmHg (80-100)
[2021-04-12 08:00] LABS: pH Blood Arterial 7.22 (7.35-7.45)
--- NOTE | 2021-04-12 08:00 | NUR ---
Received report from Gin BARAJAS. Patient is intubated, sedated, and paralyzed. She has 8.0 ET and is 25 cm at teeth with vent settings of 24/350/90/14 and sats >90%. She has PICC line to SANIYA oconnor intact and site WNL's and is infusingLevophed at 1 mcg/min. Precedex at 0.7 mcg/kg/hr, and Nimbex at 1.0 mcg/kg/min and TO4 1/4 and BIS 45-50. Dialysis port placed RIJ and plans for Dialysis today, Spoke with Dr felton and she stated she wanted lasix, she received call from Dr Sarmiento and will continue with dialysis. CBG mid 300's and will restart insulin gtt. Gave partial bath, oral care, tyler care, cath care, and am care. She has 14 Fr Marie draining scant amounts of sari colored urine. OG in place and is infusing VHP at 10 ml/hr with 30 ml water flushes q4.
--- NOTE | 2021-04-12 09:00 | NUR ---
Am meds given. Will hold lasix gtt and bicarb gtt until post dialysis whech started at 0900. No vent or gtt changes.
--- NOTE | 2021-04-12 09:48 | NUR ---
STAT FIRST RUN HEMODIALYSIS ORDERED FOR PATIENT WITH 6.2 K THIS AM SHOWING SIGNIFICANT INCREASE FROM PREVIOUS DAY. IK BATH X 30 MIN HD THEN REMAINDER OF 2 1/2 HD AT 2K BATH PER DR ALVARADO'S ORDER. UF TOLERATED BUT PRIORITY ELECTROLYTE CLEARANCE TODAY.
--- NOTE | 2021-04-12 10:57 | NUR ---
Insulin gtt started at 8 units/hr and increased precedex to 1.0 mcg/kg/hr for BIS in the 60-7- afetr changing electrodes for more accurate reading. No other changes.
--- NOTE | 2021-04-12 12:00 | NUR ---
Dr Bonilla by and wants to do art line. Dialysis done and restarted bicarb gtt. Increased Precedex to 1.4 and now BIS at 33-40 and TO4 07/28. Insulin gtt at 6 units/hr. Patient probably be tranasferred to ICU for Art line monitoring.
[2021-04-12 14:44] LABS: PCO2 Arterial 43.8 mmHg (35-45); PO2 Arterial 109 mmHg (80-100); pH Blood Arterial 7.37 (7.35-7.45)
[2021-04-12 14:56] LABS: Albumin, Blood 1.6 g/dL (3.4-5.0); Albumin/Globulin Ratio 0.4 (0.8-1.8); Bilirubin, Total 0.5 mg/dL (0.1-1.0); Bun/Creatinine Ratio 13.2 (12.0-20.0); Creatinine, Blood 3.93 mg/dL (0.40-1.00); Globulin, Blood 3.9 g/dL (2.2-4.0); Total Protein, Blood 5.5 g/dL (6.4-8.2)
[2021-04-12 14:57] LABS: Phosphorus, Blood 6.5 mg/dL (2.5-4.9); Potassium, Blood 3.8 mmol/L (3.5-5.5)
--- NOTE | 2021-04-12 15:00 | NUR ---
No significat changes with patient since dialysis ended. Nimbex at 1 mcg/kg/min and TO4 at 1/4, Precedex at 1.0 mcg/kg/hr and BIS 35-40. Levophed at 1 and systolic low 100's. Insulin at 6 and CBG low 200's
--- NOTE | 2021-04-12 15:19 | NUR ---
Patient awaiting labs to see if infusing Lasix gtt . Reduced Precedex back to 1 mcg/kg hr and BIS is at 34, TO4 remians at 1/4. Paralytic Nimbex reamins at 1 mcg/kg/min. Levophed remains at 1 mcg/min with systolics low 100's.
--- NOTE | 2021-04-12 17:26 | NUR ---
insulin gtt at 6 units/hr for low 200 CBG's, giving 100 mg lasix then starting gtt at 20 mg/hr. Remains sedated and paraalyzed. Vent settings 24/350/90/14 anbd sats >92%. She was able to tolerate 2.5 hours dialysis today. Nimbex at 1 mcg/kg/min with sedation Precedex at 1.0 mcg/kg/hr, and nimbex at 1 with TO4 at 1/4. Gram positive coxxcy in clusters and current abx covering. Only about 40 ml urine with lasix and current gtt at 20 mg/hr. Bicarb gtt infusing at 100ml/hr. Levophed remain at 1 mcg/min with systolics at low 100's.She has had her full bath today.
--- NOTE | 2021-04-12 19:30 | NUR ---
REPORT RECEIVED-CARE ASSUMED-GTTS AND RATES NOTED IN FLOWSHEET.CONTINUE ASSESSMENT AND CARE.
[2021-04-12 20:21] LABS: Bilirubin, Urine Neg (Neg); Blood, Urine 2+ (Neg); Glucose Qualitative, Urine Neg (Neg); Ketones, Urine Neg (Neg); Leukocyte Esterase, Urine 1+ (Neg); Nitrite, Urine Neg (Neg); Protein, Urine 2+ (Neg); Urobilinogen, Urine NORM (Normal)
[2021-04-12 20:26] LABS: Appearance, Urine Clear (Clear); Color, Urine Yellow (P-Yellow)
[2021-04-12 20:29] LABS: Bacteria Rare /hpf; Red Blood Cells, Urine 0-2 /hpf (0-2); Squamous Epithelial Cells Rare /hpf (Few); White Blood Cells, Urine 0-2 /hpf (0-5); Yeast/Fungi Urine Many /hpf
[2021-04-13 04:03] LABS: BASOPHILS PERCENT AUTO 0 % (0-2); EOSINOPHILS ABSOLUTE AUTO 0.01 K/mm3 (0.00-0.68); EOSINOPHILS PERCENT AUTO 0 % (0-6); Hematocrit 27.7 % (33.0-51.0); Hemoglobin 9.1 g/dL (11.5-16.0); IMMATURE GRAN ABSOLUTE AUTO 0.03 K/mm3 (0.00-0.10); IMMATURE GRAN PERCENT AUTO 1 % (0-1); LYMPHOCYTES ABSOLUTE AUTO 0.14 K/mm3 (0.84-5.20); LYMPHOCYTES PERCENT AUTO 4 % (21-46); MONOCYTES ABSOLUTE AUTO 0.13 K/mm3 (0.16-1.47); MONOCYTES PERCENT AUTO 4 % (4-13); Mean Corpuscular HGB 28.2 pg (26.0-34.0); Mean Corpuscular HGB Conc 32.9 g/dL (31.5-36.5); Mean Corpuscular Volume 86 fL (80-100); Mean Platelet Volume 10.8 fL (9.1-12.4); NEUTROPHILS ABSOLUTE AUTO 2.87 K/mm3 (1.96-9.15); NEUTROPHILS PERCENT AUTO 90 % (41-73); Platelet Count 74 K/mm3 (150-400); RDW Coefficient Variation 15.2 % (11.7-14.2); RDW Standard Deviation 47.9 fL (35.1-46.3); Red Blood Cell Count 3.23 M/mm3 (3.80-5.20); White Blood Cell Count 3.18 K/mm3 (4.00-11.30)
[2021-04-13 04:17] LABS: Albumin, Blood 1.6 g/dL (3.4-5.0); Anion Gap 9 mmol/L (6-16); Blood Urea Nitrogen 66 mg/dL (8-24); Bun/Creatinine Ratio 14.6 (12.0-20.0); CO2, Blood 25 mmol/L (21-32); Calcium, Blood 7.5 mg/dL (8.5-10.1); Chloride, Blood 104 mmol/L (98-108); Creatinine, Blood 4.52 mg/dL (0.40-1.00); Glomerular Filtration Rate 10 (60-); Glucose, Blood 186 mg/dL (70-99); Phosphorus, Blood 7.6 mg/dL (2.5-4.9); Potassium, Blood 3.8 mmol/L (3.5-5.5); Sodium, Blood 138 mmol/L (136-145)
[2021-04-13 04:50] LABS: PCO2 Arterial 48.8 mmHg (35-45)
[2021-04-13 04:51] LABS: pH Blood Arterial 7.29 (7.35-7.45)
--- NOTE | 2021-04-13 06:18 | NUR ---
END OF SHIFT NOTE PT REMAINS ON IUTG-[id number], PLACED IN PRONE @ 2200- Q4 TURNS AND ORAL CARE DONE. GTTS/RATES AND VITALS NOTED IN FLOWSHEET. INSULIN CURRENTLY ON HOLD FOR CBG 149, RECHECK CBG IN 1 HR-CALL OUT PLACED TO HOSPITALIST TO REQUEST MOLD COOLER COVERAGE AND SUGGEST D/C LASIX GTT DUE TO URINE OUTPUT REMAINS LOW-TO ALMOST NONE. CRITICAL PH CALLED TO OCC THER @ 4628-VENT CHANGE DONE-INCREASED RR TO 26. CONTINUE CARE TILL REPORT OFF TO DAYSHIFT RN.
--- NOTE | 2021-04-13 07:50 | NUR ---
ASSUMED CARE: REPORT RECEIVED FROM DICKSON Ferrara RN. ASSUMED CARE OF THIS PT AT APPROX 0700. ON ASSESSMENT, THE PT IS SEDATED W/ PRECEDEX & PARALYZED W/ NIMBEX. TOF 4/4 & NIMBEX TITRATED UP - SEE FLOWSHEET. BIS READING 30-40 ON AVG. LS ARE COARSE/ DIM T/O, VENT SETTINGS: AC/VC 26/350/14/80% W/ O2 SATS > 90% ON AVG. MONITOR SHOWS SR W/ HR 70-80s, BP STABLE. LEVOPHED ON STANDBY SINCE EARLY AM, PER REPORT. OGT IN PLACE W/ TUBE FEEDS INFUSING AT GOAL RATE, LOW RESIDUALS - SEE I&O. PT PASSING FLATUS THIS AM BUT NO BM, BOWEL CARE PER EMAR. REHMAN PATENT/ DRAINING SCANT AMNTS OF YELLOW URINE. LASIX DRIP PER EMAR. SKIN CONDITION OVERALL FRAGILE. FACIAL SWELLING & PERIORBITAL EDEMA NOTED R/T PRONING. WILL CONTINUE TO MONITOR & UPDATE NEEDED.
[2021-04-13 08:07] LABS: HBSAG SCREEN Negative (Negative); HEP A AB, IGM Negative (Negative); HEP B CORE AB, IGM Negative (Negative); HEP C VIRUS AB <0.1 (0.0-0.9)
--- NOTE | 2021-04-13 11:15 | NUR ---
Joni WELLINGTON & ABRIL: PROVIDERS AT BEDSIDE TO EVAL PT THIS AM. NOTIFIED THEM THAT INSULIN DRIP WAS PLACED ON STANDBY THIS AM FOR CBGs DECREASED TO 140s. F/U CBG AT APPROX 1030 SHOWS CBG INCREASED TO 240 AFTER APPROX 4 HRS W/ INSULIN DRIP OFF. PROVIDER STS TO PLACE PT ON HSS COVERAGE Q6H & GIVE 5 UNITS GLARGINE. INSULIN DRIP MAY BE RESUMED IF PT's CBG READING > [address] WELLINGTON STS SHE WOULD LIKE TO CONTINUE THE LASIX DRIP THE PT's URINE OUTPUT HAS INCREASED WHILE DRIP INFUSING. SHE REQUESTS THAT REHMAN URINE COLLECTION BAG BE CHANGED TO UROMETER. SHE WOULD LIKE AN ABG TO BE DRAWN NOW, & WOULD LIKE PT's LIQUID STLS TO BE SENT FOR C-DIFF TESTING. VENT SETTINGS INCREASED TO 90% FIO2 & PEEP 18.0 PER PROVIDER.
[2021-04-13 11:30] LABS: PCO2 Arterial 46.1 mmHg (35-45); PO2 Arterial 72.7 mmHg (80-100); pH Blood Arterial 7.29 (7.35-7.45)
--- NOTE | 2021-04-13 12:30 | NUR ---
TUBE FEEDING: PER DIETARY, TUBE FEED FORMULA CHANGED TO NEPRO AT APPROX 1230. INITIATED AT 10 ML/HR W/ 30 ML H20 FLUSH Q4H. OKAY TO ADVANCE TO 20 ML/HR AT APPROX 2030 TONIGHT, KANGAROO PUMP SET TO ALARM AT THAT TIME. RESIDUALS REMAIN LOW- MODERATE, SEE I&O.
[2021-04-13 13:58] LABS: C DIFFICILE DNA NEGATIVE (Negative)
--- NOTE | 2021-04-13 14:45 | NUR ---
DR ALVARADO: PROVIDER IN UNIT TO EVAL PT. POSSIBLE PHOSPHORUS BINDER FOR THIS PT IS DISCUSSED & THE PROVIDER FEELS THAT THE PT WILL LIKELY REQUIRE DIALYSIS TOMORROW, SO THE NEED FOR A PHOS BINDER CAN BE REASSESSED THEN. NO OTHER CHANGES AT THIS TIME.
--- NOTE | 2021-04-13 19:18 | NUR ---
SHIFT SUMMARY: PT REMAINS SEDATED W/ PRECEDEX & PARALYZED W/ NIMBEX. TOF 3/4 & BIS READING 40s. LS ARE COARSE/ DIM T/O, VENT SETTINGS: AC/VC 26/350/16/90% W/ O2 SATS > 95%. MONITOR SHOWS SR W/ HR 70-80s. PT BECOMING HYPOTENSIVE THIS EVENING W/ SBP 70-80s, LEVOPHED RESTARTED AT 4 MCG/MIN W/ IMPROVEMENT TO BP NOTED. OGT IN PLACE W/ TUBE FEEDS INFUSING AT GOAL RATE, LOW RESIDUALS - SEE I&O. RECTAL TUBE PLACED THIS AFTERNOON IS PATENT/ DRAINING BROWN LIQUID STLS. REHMAN PATENT/ DRAINING CLEAR YELLOW URINE W/ LASIX DRIP AT 20 MG/HR. SKIN CONDITION OVERALL FRAGILE, Q2H REPOSITIONING TO MAINTAIN SKIN INTEGRITY. WILL CONTINUE TO MONITOR & REPORT OFF TO ONCOMING RN.
--- NOTE | 2021-04-13 20:00 | NUR ---
REPORT RECEIVED-CARE ASSUMED-CRITICAL STAFFING- GTTS/RATES/VITALS-NOTED IN FLOWSHEET. SURGE SHIFT ASSESSMENT IN FLOWSHEET. PLAN-PRONE OVER NIGHT-CONTINUE ASSESSMENTS AND CARE.
--- NOTE | 2021-04-14 00:12 | NUR ---
ASSESS GTTS AND RATES NOTED IN FLOWSHEET. PT IN PRONE [id number]. T04 10/26. BIS 45-65. CONTINUE ASSESSMENTS AND CARE
[2021-04-14 05:02] LABS: Albumin, Blood 1.5 g/dL (3.4-5.0); Anion Gap 13 mmol/L (6-16); Blood Urea Nitrogen 89 mg/dL (8-24); CO2, Blood 22 mmol/L (21-32); Calcium, Blood 7.4 mg/dL (8.5-10.1); Chloride, Blood 102 mmol/L (98-108); Creatinine, Blood 5.24 mg/dL (0.40-1.00); Glomerular Filtration Rate 8 (60-); Glucose, Blood 204 mg/dL (70-99); Phosphorus, Blood 7.8 mg/dL (2.5-4.9); Potassium, Blood 4.1 mmol/L (3.5-5.5); Sodium, Blood 137 mmol/L (136-145)
--- NOTE | 2021-04-14 06:33 | NUR ---
CALL PLACED TO HOSPITALIST-AWAITING CALL BACK-REPORTED TO BAG BLEACHER- DIALYSIS CATH LEAKING BLOOD AROUND SITE.
--- NOTE | 2021-04-14 07:45 | NUR ---
ASSUMED CARE: REPORT RECEIVED FROM DICKSON Ferrara RN. ASSUMED CARE OF THIS PT AT APPROX 0700. ON ASSESSMENT, THE PT IS SEDATED W/ PRECEDEX & PARALYZED W/ NIMBEX. TOF 3/4 & BIS READING 30-40 ON AVG. LS COARSE/DIM T/O, VENT SETTINGS: AC/VC 26/350/16/90% W/ O2 SATS > 90% ON AVG. MONITOR SHOWS SB-SR W/ HR 50-60s. LEVOPHED CURRENTLY ON SB W/ HYPOTENSION IMPROVED. OGT IN PLACE W/ TUBE FEEDS INFUSING ORDERED, LOW RESIDUALS. RECTAL TUBE PATENT/ DRAINING BROWN LIQUID STLS. REHMAN PATENT/ DRAINING MINIMAL AMNTS OF CLEAR YELLOW URINE W/ LASIX DRIP INFUSING PER EMAR. PLAN FOR DIALYSIS TODAY. SKIN OVERALL FRAGILE. PT CURRENTLY IN PRONE POSITION W/ PLAN TO UNPRONE AT 1200. Q2H REPOSITIONING TO MAINTAIN SKIN INTEGRITY. WILL CONTINUE TO MONITOR & UPDATE NEEDED.
[2021-04-14 09:03] LABS: BASOPHILS PERCENT AUTO 0 % (0-2); EOSINOPHILS ABSOLUTE AUTO 0.04 K/mm3 (0.00-0.68); EOSINOPHILS PERCENT AUTO 1 % (0-6); Hematocrit 26.5 % (33.0-51.0); Hemoglobin 8.5 g/dL (11.5-16.0); IMMATURE GRAN ABSOLUTE AUTO 0.03 K/mm3 (0.00-0.10); IMMATURE GRAN PERCENT AUTO 1 % (0-1); LYMPHOCYTES ABSOLUTE AUTO 0.15 K/mm3 (0.84-5.20); LYMPHOCYTES PERCENT AUTO 3 % (21-46); MONOCYTES ABSOLUTE AUTO 0.19 K/mm3 (0.16-1.47); MONOCYTES PERCENT AUTO 4 % (4-13); Mean Corpuscular HGB 28.1 pg (26.0-34.0); Mean Corpuscular HGB Conc 32.1 g/dL (31.5-36.5); Mean Corpuscular Volume 88 fL (80-100); Mean Platelet Volume 11.1 fL (9.1-12.4); NEUTROPHILS ABSOLUTE AUTO 4.05 K/mm3 (1.96-9.15); NEUTROPHILS PERCENT AUTO 91 % (41-73); Platelet Count 57 K/mm3 (150-400); RDW Coefficient Variation 15.9 % (11.7-14.2); RDW Standard Deviation 50.6 fL (35.1-46.3); Red Blood Cell Count 3.02 M/mm3 (3.80-5.20); White Blood Cell Count 4.46 K/mm3 (4.00-11.30)
[2021-04-14 12:04] LABS: PCO2 Arterial 51.8 mmHg (35-45); PO2 Arterial 64.8 mmHg (80-100); pH Blood Arterial 7.35 (7.35-7.45)
[2021-04-14 12:58] LABS: International Normalized Ratio 0.95; Prothrombin Time Results 10.3 Sec (9.7-11.5)
--- NOTE | 2021-04-14 18:18 | NUR ---
SHIFT SUMMARY: NO ACUTE CHANGES SINCE PRIOR UPDATES. PT REMAINS SEDATED W/ PRECEDEX & PARALYZED W/ NIMBEX. TOF 3/4 & BIS READING 40s ON AVG. LS COARSE/DIM T/O, VENT SETTINGS: AC/VC 26/350/16/80% W/ O2 SATS > 90% ON AVG. MONITOR SHOW SB-SR W/ HR 50-60s. LEVOPHED ALTERNATING BETWEEN 2 MCG/MIN & STANDBY THIS SHIFT FOR LABILE BP - SEE VS. OGT IN PLACE W/ TUBE FEEDS AT GOAL RATE, LOW RESIDUALS. RECTAL TUBE DRAINING BROWN LIQUID STLS W/ OCCASIONAL LEAKAGE NOTED. REHMAN PATENT/ DRAINING CLEAR YELLOW URINE W/ LASIX DRIP PER EMAR. SKIN CONDITION OVERALL INTACT, Q2H REPOSITIONING TO MAINTAIN SKIN INTEGRITY. WILL CONTINUE TO MONITOR & REPORT OFF TO ONCOMING RN.
--- NOTE | 2021-04-14 19:00 | NUR ---
ASSUMED CARE ASSUMED CARE OF PATIENT. REMAINS INTUBATED. VENT SETTINGS: AC/VC 26/350/PEEP 16, FIO2 85%. RR 26. SEDATED WITH PRECEDEX AT 1MCG/KG/HR. NO SPONTANEOUS MOVEMENT OR RESPIRATIONS NOTED. BIS SHOWS MID-30s. NIMBEX CONTINUES AT 1.5MCG/KG/MIN. LASIX GTT CONTINUES AT 20MG/HR PER ORDER. INSULIN GTT AT 2UNITS/HR. SANIYA PICC AND DESTINY POWERGLIDE NOTED. RIJ DIALYSIS CATHETER NOTED. MONITOR SHOWS NSR WITH OCCASIONAL PACs, RATE 70s. BP STABLE. OG WITH NEPRO INFUSING AT GOAL RATE OF 30CC/HR. 30CC H20 FLUSHES Q4H. RECTAL TUBE IN PLACE WITH LIQUID BROWN STOOL. REHMAN PATENT AND DRAINING TO GRAVITY. SEE SURGE ASSESSMENT FOR FULL ASSESSMENT.
[2021-04-15 05:36] LABS: BASOPHILS PERCENT AUTO 0 % (0-2); EOSINOPHILS ABSOLUTE AUTO 0.06 K/mm3 (0.00-0.68); EOSINOPHILS PERCENT AUTO 1 % (0-6); Hematocrit 24.8 % (33.0-51.0); Hemoglobin 8.1 g/dL (11.5-16.0); IMMATURE GRAN ABSOLUTE AUTO 0.03 K/mm3 (0.00-0.10); IMMATURE GRAN PERCENT AUTO 1 % (0-1); LYMPHOCYTES ABSOLUTE AUTO 0.15 K/mm3 (0.84-5.20); LYMPHOCYTES PERCENT AUTO 3 % (21-46); MONOCYTES ABSOLUTE AUTO 0.12 K/mm3 (0.16-1.47); MONOCYTES PERCENT AUTO 3 % (4-13); Mean Corpuscular HGB 28.3 pg (26.0-34.0); Mean Corpuscular HGB Conc 32.7 g/dL (31.5-36.5); Mean Corpuscular Volume 87 fL (80-100); NEUTROPHILS ABSOLUTE AUTO 4.06 K/mm3 (1.96-9.15); NEUTROPHILS PERCENT AUTO 92 % (41-73); RDW Coefficient Variation 15.6 % (11.7-14.2); RDW Standard Deviation 49.4 fL (35.1-46.3); Red Blood Cell Count 2.86 M/mm3 (3.80-5.20); White Blood Cell Count 4.42 K/mm3 (4.00-11.30)
[2021-04-15 05:44] LABS: Platelet Count 42 K/mm3 (150-400)
[2021-04-15 06:01] LABS: Albumin, Blood 1.5 g/dL (3.4-5.0); Albumin/Globulin Ratio 0.4 (0.8-1.8); Bilirubin, Total 0.4 mg/dL (0.1-1.0); Bun/Creatinine Ratio 17.8 (12.0-20.0); Calcium, Blood 7.6 mg/dL (8.5-10.1); Creatinine, Blood 4.15 mg/dL (0.40-1.00); Globulin, Blood 3.9 g/dL (2.2-4.0); Potassium, Blood 3.5 mmol/L (3.5-5.5); Total Protein, Blood 5.4 g/dL (6.4-8.2)
--- NOTE | 2021-04-15 06:40 | NUR ---
SHIFT SUMMARY NO ACUTE CHANGES. REMAINS INTUBATED. VENT SETTINGS NOW AC/VC 26/350/PEEP 14/ FIO2 55%. RR 26. SEDATION CONTINUES WITH PRECEDEX AT 1MCG/KG/HR. BIS 35-40. NO SPONTANEOUS MOVEMENT OR RESPIRATIONS. NIMBEX CONTINUES AT 1.5MCG/KG/MIN. TO4 4/4 THIS AM. LASIX GTT CONTINUES AT 20MG/HR. ARGATROBAN INFUSING AT 1MCG/KG/MIN. INSULIN GTT BETWEEM 2-5UNITS/HR DURING NOC- NOW AT 5UNITS/HR. CBGs BETWEEN 230-275. RIJ HD CATHETER SITE CONTINUES TO OOZE- DRSG CHANGE DONE. OG WITH NEPRO AT GOAL RATE OF 30CC/HR. RESIDUALS <10CC. REHMAN PATENT AND DRAINING TO GRAVITY. RECTAL TUBE REMAINS IN PLACE- OCCASIONALLY LEAKS. WILL REPORT TO ONCOMING RN WHEN AVAILABLE.
--- NOTE | 2021-04-15 08:44 | NUR ---
ASSUMED CARE REPORT FROM KULWINDER BARAJAS AT 0700. PT INTUBATED, SEDATED, PARALYZED AND PRONED. VENT SETTINGS AC/VC 26/350/14/55%. LUNGS COARSE THROUGHOUT. YELLOW THICK SECRETIONS THROUGH ETT. NO COUGH/GAG/SWALLOW REFLEX. NIMBEX GTT, TO4 10/26, PT COMPLIANT c VENT. PRECEDEX GTT INFUSING. BIS 30-40. ARGATROBAN GTT AT 1 MCG/KG/MIN, PTT DRAWN. PT OOZING FROM DIALYSIS CATH SITE, ORAL, AND DRIED BLOOD TO RIGHT EAR. LASIX GTT AT 20 MG/HR, CLEAR YELLOW URINE OUTPUT TO REHMAN. INSULIN GTT AT 5 UNITS/HR. SR, RATE 70'S. GENERALIZED EDEMA THROUGHOUT BODY, 3+ EDEMA TO BLE. BP STABLE. RECTAL TUBE DRAINING TO BROWN LIQUID STOOL TO GRAVITY. REPORT TO ELLIE BARAJAS, PLAN TO TRANSFER TO ICU. WILL CONTINUE TO MONITOR UNTIL TRANSFER.
--- NOTE | 2021-04-15 11:30 | NUR ---
Received report from Jennifer BARAJAS. Patient transferred in PCU bed and un- proned early to transfer to ICU bed. Cleaned and changed IV lines and changed dressing on dialysis cath as has been leaking blood from site. Increased FiO2 to 60% and current settings of 26/350.60/14 and sats >90%. Precedex at 1.0 and have titraed to .8 for BIS 35-50, Nimbex at 1.5 mcg/kg/min with TO4 at 1/4. Insulin gtt at 5 units/hr for CBG's low 200's, Argatroban at 1 mcg/kg/min, Lasix gtt came at 20 mg/hr and now 10 mg/hr. Dr Kuo and Dr Sarmiento have both been by to assess patient for needs.
--- NOTE | 2021-04-15 13:30 | NUR ---
No significant changes with patient's gtt's or vent settings. Sats low to mid 90%'s on earlier settings. Systolic down to 140 from 190 as she was when transferred. Am meds given.
--- NOTE | 2021-04-15 18:31 | NUR ---
No vet or gtt changes. Vent settings 26/350/60/14 with 8.0 ET and 24 at lips and sats >90%. Patient has 18ga PowerGlide infusing Lasix at 10 mg/hr. She has PICC to SANIYA dressing intact and site WNL's and is infusing Insulin 6 units/hr, Nimbex 1.5 mcg/kg/joan nd TO4 1/4, Precedex 0.7 mcg/kg/hr and intermitent BIS 40-55, Argatroban at 1 mcg/kg/min after 1400 PTT stayed same rate. OG isd infusing Nephro at 30 ml/hr goal rate and 3-0 ml water flusges Q4. Rectal tube in place was leaking around and gave partial bath and changed all linen out. She has 14 Fr Marie draining to gravity. She has Dialysis cath to [facility] that changed dressing earlier and is now leaking blood again. She will be proned tonite.
--- NOTE | 2021-04-15 20:00 | NUR ---
ASSUMED CARE OF PT AT 1915. REPORT RECEIVED. PT PRESENTS IN BED. INTUBATED. PT ON INSULIN DRIP AT 10 UNITS PER HOUR. WILL TITRATE DOWN ABLE. PRECEDEX AT 0.7 MCG'S/KG. WILL REVIEW CHART AND PLAN OF CARE FOR THIS PT.
--- NOTE | 2021-04-16 | NUR ---
SPOKE WITH PT'S DAUGHTER ON TELEPHONE. UPDATE ON PT'S CONDITION GIVEN. ALLOWED FOR QUESTIONS. HAVE TITRATED INSULIN DRIP TO OFF.
--- NOTE | 2021-04-16 01:00 | NUR ---
PT PRONED. DURING HEAD TURN, NOTED PT WAS HAVING BLEEDING FROM PERMACATH. DRESSING CHANGED TO SITE. HELD DIRECT PRESSURE FOR APPROX 10 MINUTES. APPLIED BIO PATCH, AND COVERED WITH 4X4 GUAZE. SECURED WITH CHG TEGRADERM. DID PLACE ABD PAD UNDER AREA OF NECK/CHEST.
[2021-04-16 04:01] LABS: Albumin, Blood 1.5 g/dL (3.4-5.0); Anion Gap 11 mmol/L (6-16); Blood Urea Nitrogen 92 mg/dL (8-24); Bun/Creatinine Ratio 19.9 (12.0-20.0); CO2, Blood 25 mmol/L (21-32); Calcium, Blood 8.2 mg/dL (8.5-10.1); Chloride, Blood 97 mmol/L (98-108); Creatinine, Blood 4.62 mg/dL (0.40-1.00); Glomerular Filtration Rate 10 (60-); Glucose, Blood 199 mg/dL (70-99); Phosphorus, Blood 7.8 mg/dL (2.5-4.9); Potassium, Blood 4.2 mmol/L (3.5-5.5); Sodium, Blood 133 mmol/L (136-145)
[2021-04-16 05:40] LABS: Hematocrit 26.3 % (33.0-51.0); Hemoglobin 8.5 g/dL (11.5-16.0); Mean Corpuscular HGB 27.9 pg (26.0-34.0); Mean Corpuscular HGB Conc 32.3 g/dL (31.5-36.5); Mean Corpuscular Volume 86 fL (80-100); Mean Platelet Volume 10.8 fL (9.1-12.4); RDW Coefficient Variation 15.6 % (11.7-14.2); RDW Standard Deviation 48.9 fL (35.1-46.3); Red Blood Cell Count 3.05 M/mm3 (3.80-5.20); White Blood Cell Count 7.56 K/mm3 (4.00-11.30)
[2021-04-16 05:46] LABS: Platelet Count 48 K/mm3 (150-400)
[2021-04-16 09:58] LABS: Triglycerides 184 mg/dL (30-160)
--- NOTE | 2021-04-16 12:10 | NUR ---
REASSESSMENT PT REMAINS INTUBATED, SEDATED AND PARALYZED. BIS HAS BEEN RUNNING BETWEEN 20 AND 50. SPO2 WAS 95% MOST OF THE MORNING SO FIO2 TURNED DOWN TO 70% AND SPO2 92%. LUNGS REMAIN CLEAR AND DIM. SR, BP STABLE. PT HAD 1200 OF URINE OUT THIS AM, CL YELLOW. BLOOD OOZING FROM DIALYSIS CATH SITE, WILL CHANGE ONCE PT SUPINE. CONTINUING TO MONITOR.
[2021-04-16 14:11] LABS: HEPARIN INDUCED PLATELET AB 0.151 OD (0.000-0.400)
--- NOTE | 2021-04-17 01:20 | NUR ---
ASSUMED CARE AT 1900 PATIENT INTUBATED, SEDATED, AND PARALYZED. VENT SETTINGS ACVC 26/350/14/60%. PRECEDEX INFUSING AT 0.7MCG/KG/HOUR AND NIMBEX AT 1.5MCG/KG/MIN. HR IN LOW 60'S AND BP 150/70. TUBE FEEDS INFUSING AT GOAL VIA OG TUBE. REHMAN AND RECTAL TUBE DRAINING TO GRAVITY. LASIX INFUSING AT 10MG/HR. SKIN IS COOL TO TOUCH & INTACT WITH GENERALIZED BRUISING. THERE IS OOZING AT HD CATH SITE AT RT IJ. SEE SHIFT ASSESSMENT FOR FULL ASSESSMENT.
--- NOTE | 2021-04-17 01:29 | NUR ---
UPDATE: SEDATION & BLOOD SUGAR BIS MONITOR READING IN 80'S. PROPOFOL STARTED AT 15MCG/KG/MIN. BIS CAME DOWN TO 20'S SO DECREASED PROPOFOL TO 5MCG/KG/MIN. AT 5MCG/KG/MIN, PATIENT STAYED IN 30-40'S. A FEW HOURS LATER AFTER REPOSITIIONING, BIS CAME DOWN TO 20'S AGAIN, SO PROPOFOL PLACED ON STANDBY. 2100 BLOOD SUGAR WAS 332. CALLED DR. MORENO WHO INCREASED LONG ACTING INSULIN TO 18 UNITS BID AND GAVE A ONE TIME ORDER OF 8 UNIT OF REGULAR INSULIN. 0000 BLOOD SUGAR WAS 278 AND COVERED WITH HIGH S/S. WILL RECHECK AT 0600.
[2021-04-17 04:25] LABS: PCO2 Arterial 52.9 mmHg (35-45); PO2 Arterial 63.4 mmHg (80-100); pH Blood Arterial 7.27 (7.35-7.45)
--- NOTE | 2021-04-17 06:05 | NUR ---
END OF SHIFT NO ACUTE EVENTS OVERNIGHT. PATIENT IS INTUBATED, SEDATED, AND PARALYZED. VENT SETTINGS ACVC 26/350/14/65%. PRECEDEX INFUSING AT 0.7MCG/KG/HR AND NIMBEX AT 1.5MCG/KG/MIN. HR IS IN LOW 60'S AND BP IS 120/60'S. PROPOFOL REMAINS ON STANDBY AND ATIVAN 2MG GIVEN 1 TIME, TO WHICH AFTER PATIENT'S BP CAME DOWN AND O2 SATS IMPROVED. TUBE FEEDS STILL RUNNING AT GOAL. REHMAN AND RECTAL TUBE STILL DRAINING TO GRAVITY. SKIN REMAINS INTACT WITH GENERALIZED BRUISING. HD CATH SITE ON R IJ CONTINUES TO OOZE BUT HAS SLOWED. WILL REPORT TO AM RN WHEN AVAILABLE.
--- NOTE | 2021-04-17 06:47 | NUR ---
UPDATE DR WELLINGTON CALLED AT 0510 REGARDING MORNING ABG pH OF 7.27 FOLLOWED BY THE REST OF THE ABG RESULTS. NO NEW ORDERS PROVIDED.
[2021-04-17 08:42] LABS: Albumin, Blood 1.4 g/dL (3.4-5.0); Anion Gap 13 mmol/L (6-16); Blood Urea Nitrogen 110 mg/dL (8-24); Bun/Creatinine Ratio 21.7 (12.0-20.0); CO2, Blood 25 mmol/L (21-32); Calcium, Blood 8.1 mg/dL (8.5-10.1); Chloride, Blood 94 mmol/L (98-108); Creatinine, Blood 5.06 mg/dL (0.40-1.00); Glomerular Filtration Rate 9 (60-); Glucose, Blood 251 mg/dL (70-99); Potassium, Blood 3.7 mmol/L (3.5-5.5); Sodium, Blood 132 mmol/L (136-145)
[2021-04-17 08:47] LABS: Phosphorus, Blood 8.4 mg/dL (2.5-4.9)
--- NOTE | 2021-04-17 09:52 | NUR ---
ASSUMING CARE OF PT PT ON VENT- SETTINGS 26/350/14/65%. NIMBEX TOF 4/4 NO GAG/ COUGH. PRECEDEX 0.7 INFUSING, PRN ATIVAN GIVEN. RIGHT JUG HD CATH BLEEDING. DIALYSIS TODAY WILL ATTEMPT TO REDRESS.
[2021-04-17 10:52] LABS: BASOPHILS ABSOLUTE AUTO 0.01 K/mm3 (0.00-0.23); BASOPHILS PERCENT AUTO 0 % (0-2); EOSINOPHILS ABSOLUTE AUTO 0.18 K/mm3 (0.00-0.68); EOSINOPHILS PERCENT AUTO 3 % (0-6); Hematocrit 25.9 % (33.0-51.0); Hemoglobin 8.5 g/dL (11.5-16.0); IMMATURE GRAN ABSOLUTE AUTO 0.15 K/mm3 (0.00-0.10); IMMATURE GRAN PERCENT AUTO 2 % (0-1); LYMPHOCYTES PERCENT AUTO 3 % (21-46); MONOCYTES ABSOLUTE AUTO 0.28 K/mm3 (0.16-1.47); MONOCYTES PERCENT AUTO 4 % (4-13); Mean Corpuscular HGB 28.1 pg (26.0-34.0); Mean Corpuscular HGB Conc 32.8 g/dL (31.5-36.5); Mean Corpuscular Volume 86 fL (80-100); Mean Platelet Volume 11.9 fL (9.1-12.4); NEUTROPHILS PERCENT AUTO 89 % (41-73); Platelet Count 55 K/mm3 (150-400); RDW Coefficient Variation 15.5 % (11.7-14.2); RDW Standard Deviation 48.2 fL (35.1-46.3); Red Blood Cell Count 3.02 M/mm3 (3.80-5.20); White Blood Cell Count 7.32 K/mm3 (4.00-11.30)
--- NOTE | 2021-04-17 15:00 | NUR ---
bis montior reading 83- propofol started. 1620- pt b/p 70's post starting propofol. Dr felton notifed. propofol on stady precedex increased to 1.4. will monitor bis currently 55
--- NOTE | 2021-04-17 18:23 | NUR ---
SUMMERY OF SHIFT LEVOPHED STARTED. PRECEDEX INCREASED- FOR HIGH BIS READING, PT ON NIMBEX. TOF 4/4 +GAG PER DR. WELLINGTON DO NOT TRITRATE TO TOF MAINTAIN CURRENT RATE. PLAN TO DC NIMBEX SOON. LASIX GTT DECREASED TO 5MG/HR. URINE OUTPUT 2L. DIALYSIS DONE TODAY. NO CHANGES IN VENT SETTINGS. PT SUPINED AT 1500.. DELAYED DUE TO HD NO OTHER CHANGES TO REPORT
--- NOTE | 2021-04-17 19:00 | NUR ---
ASSUMPTION OF CARE: PATIENT INTUBATED, SEDATED, AND PARALYZED. NIMBEX INFUSING AT 1.5MCG/KG/MIN, PRECEDEX AT 1.0MCG/KG/HR, LASIX AT 5MG/HR, LEVO AT 2MCG/MIN, AND PROPOFOL IS ON STANDBY. VENT SETTINGS ARE AC 26/350/14/65%. HR IS IN HIGH 50'S AND BP IN 110/60'S. NEPRO RUNNING AT GOAL OF 30 VIA OG. REHMAN AND RECTAL TUBE DRAINGING TO GRAVITY. SKIN INTACT WITH GENERALIZED BRUISING, COOL TO TOUCH. SEE SHIFT ASSESSMENT FOR FULL ASSESSMENT.
--- NOTE | 2021-04-17 22:10 | NUR ---
UPDATE: LEVO PLACED ON STANDBY DUE TO SBP OF >157. INCREASED PRECEDEX TO 1.2MCG/KG/HR DUE TO HIGH BP; HR IN LOW 70'S.
--- NOTE | 2021-04-18 00:26 | NUR ---
UPDATE: AFTER TURNING PATIENT'S HEAD AND REPOSITIONING HER ARMS, SATS STARTED DECREASING INTO MID-80'S. HER FIO2 WAS INCREASED TO 85% AND SATS ARE CURRENTLY 92%. RT INFORMED; WILL ATTEMPT TO WEAN DOWN TOLERATED. BIS ALSO INCREASED TO HIGH 70'S. PRN ATIVAN GIVEN.
[2021-04-18 03:29] LABS: BASOPHILS PERCENT AUTO 0 % (0-2); EOSINOPHILS ABSOLUTE AUTO 0.16 K/mm3 (0.00-0.68); EOSINOPHILS PERCENT AUTO 3 % (0-6); Hematocrit 23.8 % (33.0-51.0); Hemoglobin 7.8 g/dL (11.5-16.0); IMMATURE GRAN ABSOLUTE AUTO 0.11 K/mm3 (0.00-0.10); IMMATURE GRAN PERCENT AUTO 2 % (0-1); LYMPHOCYTES ABSOLUTE AUTO 0.18 K/mm3 (0.84-5.20); LYMPHOCYTES PERCENT AUTO 3 % (21-46); MONOCYTES PERCENT AUTO 4 % (4-13); Mean Corpuscular HGB 28.2 pg (26.0-34.0); Mean Corpuscular HGB Conc 32.8 g/dL (31.5-36.5); Mean Corpuscular Volume 86 fL (80-100); Mean Platelet Volume 12.3 fL (9.1-12.4); NEUTROPHILS ABSOLUTE AUTO 4.89 K/mm3 (1.96-9.15); NEUTROPHILS PERCENT AUTO 88 % (41-73); Platelet Count 60 K/mm3 (150-400); RDW Coefficient Variation 15.6 % (11.7-14.2); RDW Standard Deviation 47.8 fL (35.1-46.3); Red Blood Cell Count 2.77 M/mm3 (3.80-5.20); White Blood Cell Count 5.54 K/mm3 (4.00-11.30)
[2021-04-18 03:47] LABS: Albumin, Blood 1.3 g/dL (3.4-5.0); Albumin/Globulin Ratio 0.3 (0.8-1.8); Bilirubin, Total 0.5 mg/dL (0.1-1.0); C-REACTIVE PROTEIN, EXT RANGE 5.1 mg/dL (0.000-0.300); Calcium, Blood 7.8 mg/dL (8.5-10.1); Creatinine, Blood 3.34 mg/dL (0.40-1.00); Globulin, Blood 4.4 g/dL (2.2-4.0); Phosphorus, Blood 5.7 mg/dL (2.5-4.9); Potassium, Blood 4.3 mmol/L (3.5-5.5); Total Protein, Blood 5.7 g/dL (6.4-8.2)
[2021-04-18 05:46] LABS: PO2 Arterial 73.1 mmHg (80-100); pH Blood Arterial 7.41 (7.35-7.45)
--- NOTE | 2021-04-18 06:24 | NUR ---
END OF SHIFT SUMMARY NO ACUTE EVENTS OVERNIGHT. PATIENT INTUBATED, SEDATED, & PARALYZED AND CURRNETLY PRONED. NIMBEX, PRECEDEX, LASIX, AND LEVO INFUSING. VENT SETTINGS ARE AV 26/350/14/70%. APPEARS SINUS MARCOS ON THE MONITOR. TUBE FEEDINGS RUNNING AT GOAL. REHMAN AND RECTAL TUBE DRAINING TO GRAVITY. HD CATH CONTINUES TO OOZE. WILL REPORT TO AM RN WHEN AVAILABLE.
--- NOTE | 2021-04-18 10:12 | NUR ---
ASSUMING CARE OF PT PT INTUBATED,SEDATED, ON PARALYTIC. /4 TOF NO GAG, NO COUGH. TUBE FEEDING INFUSING AT GOAL. 20ML RESIDUAL. SKIN INTACT, SCATTERED BRUSING. REHMAN DRAINGING CLEAR YELLOW URINE. RIJ HAS SIGNIFICANT BLEEDING. HBG DROP, MORNING LOVENOX HELD. DR. WELLINGTON NOTIFED VENT SETTINGS- 26/350/14/60% PRECEDEX AT 1.2---NIMBEX 1.5
--- NOTE | 2021-04-18 14:33 | NUR ---
UPATE NIMBEX WEANED OFF. PATIENT OPENED EYES, FOLLOWED COMMANDS. RESTRAINTED PLACE ON. PATIENT STARTED TO DESTAT INTO THE 80'S.. PRN ATIVAN GIVEN. PT STILL RESTLESS. ATIVAN DRIP ORDERED. KETAMINE ORDERED. PROPOFOL INFUSING UNTIL KETAMINE IS AVAIABLE. STATS IMPROVED AFTER PT SEDATED.
--- NOTE | 2021-04-18 20:58 | NUR ---
ASSUMPTION OF CARE PT RECIEVED INTUBATED/SEDATED, NO ACUTE DISTRESS NOTED. DRIPS AND ORDERS VERIFIED. SEE SHIFT ASSESSMENT.
[2021-04-19 04:29] LABS: PCO2 Arterial 53.5 mmHg (35-45); pH Blood Arterial 7.36 (7.35-7.45)
--- NOTE | 2021-04-19 06:09 | NUR ---
SHIFT SUMMARY PT REMAINS SEDATED AND INTUBATED. PT GRIMACING AND MILD RESTLESS NOTED, PROPOFOL AND KETAMINE INCREASED. PT CURRENT VENT SETTINGS ARE AC 26/350/14/85. PT NOTED TO DESTATURATE WITH TURNS, SLOW TO RECOVER. FIO2 INCREASD FROM 60% TO 85% THROUGHOUT THE SHIFT. PT RECIEVED ON LEVOPHED, LEVOPHED TITRATED OFF. PT SBP MAINTAINING ABOVE 90. RIGHT IJ HEMODIALYSIS CATHETER CONTINUES TO OOZE, DRESSING CHANGED, AND PRESSURE DRESSING PLACED ON TOP DUE TO CONTINOUS OOZING. NO ACUTE DISTRESS NOTED.
[2021-04-19 06:14] LABS: BASOPHILS ABSOLUTE AUTO 0.01 K/mm3 (0.00-0.23); BASOPHILS PERCENT AUTO 0 % (0-2); EOSINOPHILS ABSOLUTE AUTO 0.16 K/mm3 (0.00-0.68); EOSINOPHILS PERCENT AUTO 2 % (0-6); Hematocrit 22.9 % (33.0-51.0); Hemoglobin 7.7 g/dL (11.5-16.0); IMMATURE GRAN ABSOLUTE AUTO 0.09 K/mm3 (0.00-0.10); IMMATURE GRAN PERCENT AUTO 1 % (0-1); LYMPHOCYTES ABSOLUTE AUTO 0.21 K/mm3 (0.84-5.20); LYMPHOCYTES PERCENT AUTO 3 % (21-46); MONOCYTES ABSOLUTE AUTO 0.24 K/mm3 (0.16-1.47); MONOCYTES PERCENT AUTO 3 % (4-13); Mean Corpuscular HGB 29.1 pg (26.0-34.0); Mean Corpuscular HGB Conc 33.6 g/dL (31.5-36.5); Mean Corpuscular Volume 86 fL (80-100); Mean Platelet Volume 12.6 fL (9.1-12.4); NEUTROPHILS ABSOLUTE AUTO 7.62 K/mm3 (1.96-9.15); NEUTROPHILS PERCENT AUTO 92 % (41-73); Platelet Count 56 K/mm3 (150-400); RDW Coefficient Variation 16.2 % (11.7-14.2); RDW Standard Deviation 49.6 fL (35.1-46.3); Red Blood Cell Count 2.65 M/mm3 (3.80-5.20); White Blood Cell Count 8.33 K/mm3 (4.00-11.30)
[2021-04-19 06:39] LABS: Bun/Creatinine Ratio 20.7 (12.0-20.0); Calcium, Blood 8.1 mg/dL (8.5-10.1); Creatinine, Blood 3.82 mg/dL (0.40-1.00); Phosphorus, Blood 5.7 mg/dL (2.5-4.9); Potassium, Blood 5.1 mmol/L (3.5-5.5)
--- NOTE | 2021-04-19 12:13 | NUR ---
CENTRAL LINE DRESSING CHANGE DUE TO HIGH LEAKAGE.
--- NOTE | 2021-04-19 12:36 | NUR ---
GAVE 2MG LORAZEPAM DUE TO OVERBREATHING AND HIGH PEAK PRESSURES. AWARE.
--- NOTE | 2021-04-19 17:15 | NUR ---
SHIFT SUMMARY NEURO: KETAMINE INCREASED TO 1MG/KG/HR AT NOON DUE TO PEAK PRESSURES/OVERBREATHING VENTILATOR. REMAINS ON PROPOFOL 20MCG/KG/MIN AND LORAZEPAM 2MG/HR. OCCASIONAL HEAD MOVEMENT, STILL OVERBREATHING VENT 26-28/MIN. CARDIAC: OCCASIONAL UNIFOCAL PVCS. SR TO ST. BP STABLE, HELD AMLODIPINE THIS AM. CHANGED R IJ DRESSING; STILL WITH SIGNIFICANT BLOODY LEAKAGE, MD AWARE, MONITOR CBC RESULTS IN AM. AFEBRILE. HELD LOVENOX THIS AM. RESP: VENT SETTINGS 23/380/14/80% (CHANGED FROM 26/350/14/100% THIS AM). PT TOLERATING CHANGES. NO DRAINAGE SUCTIONED FROM ETT TODAY EVEN W/ PT COUGHING. GI: TF CONTINUE. CONTINUAL LOOSE STOOLS IN RECTAL TUBE. TROUBLESHOOTING RECTAL TUBE AT NOON DUE TO LEAKING AROUND ANUS; APPARENT CORRECTION WTIH 45ML WATER IN BALLOON. : GOOD UOP. MK/INTEG: PT TO BE PRONED THIS EVENING AT [address] JONES. PSYCH: DAUGHTER (MONIQUE) VISITED WITH PT TODAY.
--- NOTE | 2021-04-19 17:22 | NUR ---
0700: SBAR FROM KARL PINEDA. EMERGENCY EQUIPMENT AT BEDSIDE AND FUNCTIONAL. BED IN LOW/LOCKED POSITION AND CLUTTER-FREE ENVIRONMENT. IV GTT VERIFIED (SEE ASSESSMENT). 0800: DISCUSSED CONCERNS W/ DR. ROBERT MILAN OOZING AT [facility] SITE. REQUESTED APPROVAL TO HOLD LOVENOX. NOTIFIED HER THAT I AM HOLDING AMLODIPINE. LOVENOX TO BE HELD. 1000: INCREASE KETAMINE TO 0.7MG/KG/HR. AFTER EPISODE OF DESTURATION TO 85%, HAD TO INCREAS FIO2 TO 100% TO MAINTAIN ABOVE 90% SPO2. 1200: INCREASED KETAMINE TO 1MG/KG/HR DUE TO PEAK PRESSURES 42-46 ON VENT. SEE MAR FOR ADMINISTRATION OF PRN LORAZEPAM FOR ADDITIONAL SEDATION. 1300: MONIQUE (DAUGHTER) VISITED WITH PATIENT X 1 HR. 1600: R IJ DRESSING WAS CHANGED TODAY, SEE ASSESSMENT. STILL OOZING BLOOD.
--- NOTE | 2021-04-19 22:43 | NUR ---
ASSUMPTION OF CARE 1899- PATIENT RECIEVED INTUBATED AND SEDATED. PT CURRENTLY ON PROPOFOL, KETAMINE, AND ATIVAN GGT. PT VENT SETTINGS ARE AC 23/380/14/80%. PT SBP ABOVE 90. PT CONTINUTES TO OOZE AT RIGHT IJ HEMODIALYSIS SITE. PT TO BE PRONED AT 1999. NO ACUTE DISTRESS NOTED. WILL CONTINUE TO MONITOR.
[2021-04-20 04:13] LABS: PCO2 Arterial 52.5 mmHg (35-45); PO2 Arterial 71.6 mmHg (80-100); pH Blood Arterial 7.34 (7.35-7.45)
[2021-04-20 05:31] LABS: Hematocrit 18.9 % (33.0-51.0); Hemoglobin 6.1 g/dL (11.5-16.0); Mean Corpuscular HGB 28.4 pg (26.0-34.0); Mean Corpuscular HGB Conc 32.3 g/dL (31.5-36.5); Mean Corpuscular Volume 88 fL (80-100); Platelet Count 54 K/mm3 (150-400); RDW Coefficient Variation 16.3 % (11.7-14.2); RDW Standard Deviation 50.9 fL (35.1-46.3); Red Blood Cell Count 2.15 M/mm3 (3.80-5.20); White Blood Cell Count 6.45 K/mm3 (4.00-11.30)
[2021-04-20 05:58] LABS: Albumin, Blood 1.1 g/dL (3.4-5.0); Albumin/Globulin Ratio 0.3 (0.8-1.8); Bilirubin, Total 0.6 mg/dL (0.1-1.0); Bun/Creatinine Ratio 21.4 (12.0-20.0); C-REACTIVE PROTEIN, EXT RANGE 11.5 mg/dL (0.000-0.300); Calcium, Blood 8.1 mg/dL (8.5-10.1); Creatinine, Blood 3.97 mg/dL (0.40-1.00); Magnesium, Blood 2.2 mg/dL (1.6-2.4); Percent Saturation 48.7 % (15.0-50.0); Potassium, Blood 3.6 mmol/L (3.5-5.5); Total Protein, Blood 5.1 g/dL (6.4-8.2)
--- NOTE | 2021-04-20 06:28 | NUR ---
SHIFT SUMMARY PT REMAINES INTUBATED AND SEDATED. PT PRONED AT 1999. PT TOLERATED. VENT SETTINGS REMAIN AC 23/380/14/80%. PT REMAINS ON PROPOFOL, KETAMINE, AND ATIVAN FOR SEDATION. LEVOPHED RESTARTED AFFTER SBP BELOW 90. LEVOPHED AT 2MCG. SBP ABOVE 90. PT REMAINS IN NSR. PT NOTED TO HAVE BLEEDING TO RIGHT IJ DIALYSIS CATHETER SITE. UNABLE TO REACH HEMOSTASIS TO SITE. MORNING HEMOGLOBIN 6.1, DR. BOO MADE AWARE, AND ONE UNIT OF BLOOD ORDERED. DAUGHTER YOHANA RODRIGUEZ WAS CALLED TO OBTAIN CONSENT. CONSENT WAS OBTAINED VIA TELEPHONE AND SHE BARAJAS WITNESSED THE CONSENT.
--- NOTE | 2021-04-20 11:24 | NUR ---
CARE ASSUMED ASSESSMENTS COMPLETED, PT REMAINS SEDATED WITH PROPOFOL 25MCG/KG/MIN, ATIVAN 2MG/HR, AND KETAMINE 1MG/KG/HR. RAFFAELE, NO RESPONSE TO PAIN, NO EXTREM MOVEMENT NOTED AT THIS TIME. PT PRONE, VENT AC 23, Vt 380, PEEP 14, FIO2 75%. RR 23, SPO2 96%, PEAK PRESSURE 36. LS CLEAR, DIMINISHED IN R BASE, SCANT CLEAR SECRETIONS FROM ETT. HR 60'S SINUS, BP STABLE, LEVO TITRATED OFF. SCLERAL AND PEDAL EDEMA PRESENT, SKIN BRUISED, PALE, COOL TO TOUCH. DIALYSIS CATH TO R IJ BLEEDING ON THIS RN'S ARRIVAL , HENOK DRESSING PLACED, BLEEDING HAS STOPPED FOR THE TIME BEING. PLAN FOR DIALYSIS TODAY PER DR. ALVARADO. PT HAS DECENT URINE OUTPUT THIS MORNING. RECTAL TUBE DRAINING BROWN LIQUID STOOL. DR PHILLIPS IN TO ASSESS.
[2021-04-20 14:08] LABS: Hematocrit 19.9 % (33.0-51.0); Hemoglobin 6.6 g/dL (11.5-16.0); Mean Corpuscular HGB 29.7 pg (26.0-34.0); Mean Corpuscular HGB Conc 33.2 g/dL (31.5-36.5); Mean Corpuscular Volume 90 fL (80-100); Mean Platelet Volume 11.6 fL (9.1-12.4); RDW Coefficient Variation 16.4 % (11.7-14.2); RDW Standard Deviation 53.1 fL (35.1-46.3); Red Blood Cell Count 2.22 M/mm3 (3.80-5.20); White Blood Cell Count 2.24 K/mm3 (4.00-11.30)
[2021-04-20 14:42] LABS: Platelet Count 34 K/mm3 (150-400)
[2021-04-20 15:03] LABS: BAND PERCENT MAN 4 % (0-8); BASOPHILS PERCENT MAN 0 % (0-2); EOSINOPHILS ABSOLUTE MAN 0.02 K/mm3 (0.00-0.68); EOSINOPHILS PERCENT MAN 1 % (0-6); LYMPHOCYTES ABSOLUTE MAN 0.08 K/mm3 (0.84-5.20); LYMPHOCYTES PERCENT MAN 4 % (21-46); MONOCYTES PERCENT MAN 0 % (4-13); NEUTROPHILS ABSOLUTE MAN 2.12 K/mm3 (1.96-9.15); SEG NEUTROPHILS PERCENT MAN 91 % (41-73); TOTAL CELLS COUNTED 100
--- NOTE | 2021-04-20 16:00 | NUR ---
DIALYSIS DIALYSIS COMPLETED PER DR. ALVARADO, VS REMAINED STABLE T/O WITHOUT LEVOPHED. 500ML OFF DURING DIALYSIS PER KARL VELAZQUEZ. CRITICAL PLT VALUE RECEIVED, REPORTED TO DR. PHILLIPS. 'S HAD DISCUSSED REMOVING DIALYSIS CATH THIS AFTERNOON AFTER DIALYSIS BUT SITE IS NO LONGER BLEEDING, REMAINS IN PLACE PER DR. PHILLIPS FOR LOW PLATELET COUNT.
[2021-04-20 17:29] LABS: Source, Urine Catheter
[2021-04-20 17:45] LABS: Appearance, Urine Clear (Clear); Bilirubin, Urine Neg (Neg); Blood, Urine 5+ (Neg); Color, Urine Yellow (P-Yellow); Glucose Qualitative, Urine Neg (Neg); Ketones, Urine Neg (Neg); Leukocyte Esterase, Urine 2+ (Neg); Nitrite, Urine Neg (Neg); Protein, Urine 2+ (Neg); Urobilinogen, Urine NORM (Normal)
[2021-04-20 18:12] LABS: Bacteria Mod /hpf; Mucus Light (0-Heavy); Renal Epithelial Mod /hpf (0-Rare); Squamous Epithelial Cells Few /hpf (Few)
[2021-04-20 18:13] LABS: Calcium Oxalate Crystals Few /hpf; Yeast/Fungi Urine Many /hpf
--- NOTE | 2021-04-20 18:46 | NUR ---
SEDATION VACATION/END OF SHIFT VSS TODAY, LEVOPHED REMAINS OFF. PROPOFOL TITRATED OFF, PT NOW ON KETAMINE 1.5MG/KG/HR AND ATIVAN 3MG/HR, 2ND UNIT PRBC'S INFUSING PER ORDERS WITHOUT S/SX REACTION. LS CLEAR, DIMINISHED, ALL COARSE SOUNDS CLEAR WITH SUCTIONING, SPUTUM HAS TURNED WHITE/PATINO THIS EVENING AND IS MODERATE IN AMOUNT. VENT AC 23, Vt 380, PEEP 14, FIO2 85%, PT IN SUPINE POSITION SINCE 1200 TODAY. RR 23, SPO2 93%, PEAK PRESSURE 30'S-45. KETAMINE TURNED OFF FOR SEDATION VACATION THIS EVENING, PT GRIMACED TO ORAL SUCTIONING BUT NO GAG/SWALLOW REFLEX PRESENT, COUGH INTACT. PT DID NOT RESPOND TO PAIN, DID NOT MOVE EXTREMS OR ATTEMPT TO OPEN EYES. PT ALARMING HIGH PEAK PRESSURES, STACKING BREATHS, RR 25, SPO2 REMAINED LOW 90'S. RESEDATED. HR 70'S, PVC'S NOTED THIS EVENING, BP STABLE BUT INCREASING T/O SHIFT AFTER BLOOD PRODUCTS. PT AFEBRILE THIS SHIFT, 50ML STOOL IN RECTAL TUBE, GOOD URINE OUTPUT. SKIN REMAINS BRUISED BUT INTACT, SMALL HEMATOMA TO L ANTERIOR SHOULDER UNCHANGED. DIALYSIS CATH TO R IJ REMAINS IN PLACE, SCANT OOZING TODAY AFTER HENOK DRESSING PLACED. DAUGHTER IN THIS AFTERNOON, UPDATED.
--- NOTE | 2021-04-21 03:02 | NUR ---
SELF PRONE PT COMPLETED THIS AT 0230. WILL ATTEMPT TO KEEP PT PRONE FOR LONG HE CAN TOLERATE IT.
[2021-04-21 05:46] LABS: Base Excess Venous 3.4 mmol/L; PCO2 Venous 55.2 mmHg (38-42); PO2 Venous 162 mmHg (38-42); pH Blood Venous 7.33 (7.34-7.37)
[2021-04-21 06:01] LABS: BASOPHILS ABSOLUTE AUTO 0.02 K/mm3 (0.00-0.23); BASOPHILS PERCENT AUTO 0 % (0-2); EOSINOPHILS ABSOLUTE AUTO 0.19 K/mm3 (0.00-0.68); EOSINOPHILS PERCENT AUTO 2 % (0-6); Hematocrit 23.7 % (33.0-51.0); Hemoglobin 7.9 g/dL (11.5-16.0); IMMATURE GRAN ABSOLUTE AUTO 0.07 K/mm3 (0.00-0.10); IMMATURE GRAN PERCENT AUTO 1 % (0-1); LYMPHOCYTES PERCENT AUTO 4 % (21-46); MONOCYTES ABSOLUTE AUTO 0.34 K/mm3 (0.16-1.47); MONOCYTES PERCENT AUTO 4 % (4-13); Mean Corpuscular HGB 29.8 pg (26.0-34.0); Mean Corpuscular HGB Conc 33.3 g/dL (31.5-36.5); Mean Corpuscular Volume 89 fL (80-100); Mean Platelet Volume 11.3 fL (9.1-12.4); NEUTROPHILS PERCENT AUTO 88 % (41-73); RDW Standard Deviation 51.7 fL (35.1-46.3); Red Blood Cell Count 2.65 M/mm3 (3.80-5.20); White Blood Cell Count 7.92 K/mm3 (4.00-11.30)
[2021-04-21 06:09] LABS: Platelet Count 49 K/mm3 (150-400)
--- NOTE | 2021-04-21 06:30 | NUR ---
SUMMARY NO ACCUTE CHANGES OVER NIGHT. NEURO. PT ON KETAMINE AND ATIVAN. COUGHS AND GRIMACES WITH SUCTIONING. NO PAIN RESPONSE. PERRL 3MM. CV-SR WITH FREQ. PVC'S SBP STABLE. RESP. NO CHANGES OVER NIGHT. TOLERATING VENT. CLEAR TO COARSE. CLEARS WITH SUCTIONING. GI. RECTAL TUBE 500ML OUT. HYPOACTIVE BS. TF AT 30ML/HR. REHMAN DRAINING. 1050ML OUTPUT. FERNANDO CLEAR SKIN. EXCORIATED BUTTOCKS AND BETWEEN LEGS. CREAM APPLIED.
[2021-04-21 06:33] LABS: Albumin, Blood 1.2 g/dL (3.4-5.0); Albumin/Globulin Ratio 0.3 (0.8-1.8); Bilirubin, Total 0.6 mg/dL (0.1-1.0); Bun/Creatinine Ratio 24.2 (12.0-20.0); Calcium, Blood 8.3 mg/dL (8.5-10.1); Creatinine, Blood 2.52 mg/dL (0.40-1.00); Globulin, Blood 4.1 g/dL (2.2-4.0); Magnesium, Blood 2.2 mg/dL (1.6-2.4); Phosphorus, Blood 4.4 mg/dL (2.5-4.9); Potassium, Blood 3.2 mmol/L (3.5-5.5); Total Protein, Blood 5.3 g/dL (6.4-8.2)
--- NOTE | 2021-04-21 09:34 | NUR ---
-CARE ASSUMED ASSESSMENTS COMPLETED, VENT SETTINGS AND DRIP RATES UNCHANGED. PT PRONE, LS COARSE T/O BUT CLEAR WITH ETT SUCTIONING. SECRETIONS PATINO, THCK. SPO2 90-93%, PEAK PRESSURES 30-45. RAFFAELE, GRIMACING TO ORAL CARE, NO OTHER RESPONSES NOTED AT THIS TIME, NO MOVEMENT TO EXTREMS. HR 70'S SINUS WITH FREQUENT PVC'S, BP STABLE. PT EDEMATOUS T/O, FAINT PULSES IN ALL EXTREMS. SKIN PALE, COOL, DRY. REHMAN AND RECTAL TUBES PATENT, TF INFUSING PER ORDERS. R IJ CL CONTNIUES TO OOZE BLOOD, WILL CHANGE DRESSING WHEN PT IS REPOSITIONED TO SUPINE.
--- NOTE | 2021-04-21 13:25 | NUR ---
UPDATE PT REPOSITIONED TO SUPINE, SPO2 DESAT TO MID 80'S WITH PROLONGED RECOVERY, IS NOW 94% WITH VENT SETTINGS UNCHANGED. R IJ DIALSYS CATH SITE CONTINUES TO BLEED, NEW HENOK DRESSING PLACED, MANUAL PRESSURE HELD, BLEEDING HAS SLOWED BUT NOT STOPPED. PT MOVING HEAD OCCASIONALLY, NO OTHER NEURO CHANGES NOTED. DAUGHTER IN TO VISIT.
--- NOTE | 2021-04-21 18:30 | NUR ---
END OF SHIFT VENT SETTINGS AND GTT'S UNCHANGED TODAY, PEAK PRESSURES 30-50, SPO2 LOW 90'S AT REST, DESAT TO LOW 80'S WITH ACTIVITY WITH PROLONGED RECOVERY PERIOD. LS COARSE BUT CLEAR WITH ETT SUCTIONING, SECRETIONS MODERATE TO LARGE, PATINO, THICK. HR 70-80'S SINUS WITH PVC'S, BP STABLE THIS SHIFT. PT REMAINS EDEMATOUS, GOOD URINE OUTPUT, RENAL FUNCTION IMPROVING. RECTAL TUBE CONTINUES TO DRAIN LARGE VOLUMES. DIALYSIS CATH REMAINS IN PLACE TO R IJ, CONTINUES TO SLOWLY BLEED. DRESSING CHANGED TWICE TODAY. NEURO STATUS UNCHANGED, PT MOVES HEAD SPONTANEOUSLY, ONLY GRIMACES DURING ORAL CARE, RAFFAELE. NO PURPOSEFUL MOVEMENT NOTED.
[2021-04-22 03:37] LABS: BASOPHILS ABSOLUTE AUTO 0.02 K/mm3 (0.00-0.23); BASOPHILS PERCENT AUTO 0 % (0-2); EOSINOPHILS ABSOLUTE AUTO 0.21 K/mm3 (0.00-0.68); EOSINOPHILS PERCENT AUTO 2 % (0-6); Hematocrit 23.4 % (33.0-51.0); Hemoglobin 7.6 g/dL (11.5-16.0); IMMATURE GRAN ABSOLUTE AUTO 0.13 K/mm3 (0.00-0.10); IMMATURE GRAN PERCENT AUTO 1 % (0-1); LYMPHOCYTES ABSOLUTE AUTO 0.37 K/mm3 (0.84-5.20); LYMPHOCYTES PERCENT AUTO 3 % (21-46); MONOCYTES ABSOLUTE AUTO 0.62 K/mm3 (0.16-1.47); MONOCYTES PERCENT AUTO 5 % (4-13); Mean Corpuscular HGB 29.7 pg (26.0-34.0); Mean Corpuscular HGB Conc 32.5 g/dL (31.5-36.5); Mean Corpuscular Volume 91 fL (80-100); Mean Platelet Volume 10.9 fL (9.1-12.4); NEUTROPHILS ABSOLUTE AUTO 11.15 K/mm3 (1.96-9.15); NEUTROPHILS PERCENT AUTO 89 % (41-73); NRBC ABSOLUTE 0.03 K/mm3 (0.00-0.02); NRBC Auto 0.2 /100 WBC (0.0-0.2); Platelet Count 62 K/mm3 (150-400); RDW Coefficient Variation 16.7 % (11.7-14.2); RDW Standard Deviation 55.2 fL (35.1-46.3); Red Blood Cell Count 2.56 M/mm3 (3.80-5.20)
[2021-04-22 03:52] LABS: Albumin, Blood 1.3 g/dL (3.4-5.0); Anion Gap 7 mmol/L (6-16); Blood Urea Nitrogen 69 mg/dL (8-24); Bun/Creatinine Ratio 26.7 (12.0-20.0); CO2, Blood 28 mmol/L (21-32); Calcium, Blood 8.4 mg/dL (8.5-10.1); Chloride, Blood 109 mmol/L (98-108); Creatinine, Blood 2.58 mg/dL (0.40-1.00); Glomerular Filtration Rate 19 (60-); Glucose, Blood 144 mg/dL (70-99); Magnesium, Blood 1.9 mg/dL (1.6-2.4); Phosphorus, Blood 4.4 mg/dL (2.5-4.9); Potassium, Blood 3.7 mmol/L (3.5-5.5); Sodium, Blood 144 mmol/L (136-145)
--- NOTE | 2021-04-22 06:14 | NUR ---
SUMMARY NEURO-COUGH AND GRIMACE. SLIGHT GAG WITH ORAL CARE. PERRL 4MM SLUGGISH. DOES NOT RESPOND TO NAILBED PRESSURE. CV NSR. STABLE BP. RESP. NO CHANGES ON VENT OVER NIGHT. PT TOLERATING TURNS A BIT BETTER. SLIGHT DROP TO 85% SPO2 WITH 1 TURN LAST NIGHT. OTHERWISE MAINTAINED 90% OR GREATER GI. TF AND FLUSHES. ACTIVE BS. REGLAN STARTED LAST NIGHT. RESIDUAL OF 125 AND 140 REINSTILLED LAST NIGHT. ZERO DISCARDED. . 950 ML UOP. CLEAR FERNANDO. KIDNEY FUNCTION IMPROVED ON AM LABS. SKIN EXCORIATED BUTTOCKS AND BETWEEN LEGS, CREAM APPLIED AND PETR/RECTAL TUBE/CATHETER CARE PERFORMED NEEDED. Q2 TURNS AND Q4H ORAL CARECOMPLETED.
--- NOTE | 2021-04-22 07:15 | NUR ---
Assumed care of pt at 0700 from Graeme BARAJAS. ETT: 8.0 cm, 24 cm at teeth. Vent: ACVC 23/380/14/80%. Drips: Ketamine 1.5 mg/kg/hr, Ativan 3 mg/hr See shift assessment for more details.
--- NOTE | 2021-04-22 13:00 | NUR ---
Pt changed from prone positioning to supine with pillows underneath right hip. Pt tolerated well. Vent settings unchanged. RIJ line dressing changed as it was saturated with blood. Tegaderm CHG and pili patch placed.
--- NOTE | 2021-04-22 19:34 | NUR ---
SUMMARY Neuro: Responsive to pressure/painful stimulus. 3 mm pupils, PERRL. Cough and gag present. Ketamine 1.5 mg/kg/hr, Versed 4 mg/hr. Musculoskeletal: Mobility limited by cords, lines, tubes, weakness, deconditioning, and restraint. Resp: 8.0 cm ETT, 24 cm at teeth. Vent settings ACVC 23/380/14/85%. SpO2 90% or greater. Lungs dim t/o. No sputum suctioned from ETT. Cardiac: SR per monitor, BP stable. Nonpitting edema BUE and BLE. Capillary refill less than 3 seconds BUE and BLE. GI: OG tube with feed and flush per orders. Most recent residual measured only 50 mL. Rectal tube in place with dark/black drainage. Discussed BM with Dr Sanchez, with concern that it looks like GI bleed. Orders given to continue to monitor. : Marie catheter in place draining clear, yellow urine. Responded well to IV lasix. Skin: Scattered ecchymosis. Leaking from RIJ site. Dialysis catheter, Powerglide, and PICC dressings changed today. Psych: CHRISTIANO due to intubation and sedation. Pt's daughter in to see pt today.
[2021-04-23 03:54] LABS: BASOPHILS ABSOLUTE AUTO 0.02 K/mm3 (0.00-0.23); BASOPHILS PERCENT AUTO 0 % (0-2); EOSINOPHILS ABSOLUTE AUTO 0.07 K/mm3 (0.00-0.68); EOSINOPHILS PERCENT AUTO 1 % (0-6); Hematocrit 21.5 % (33.0-51.0); Hemoglobin 6.8 g/dL (11.5-16.0); IMMATURE GRAN ABSOLUTE AUTO 0.07 K/mm3 (0.00-0.10); IMMATURE GRAN PERCENT AUTO 1 % (0-1); LYMPHOCYTES ABSOLUTE AUTO 0.31 K/mm3 (0.84-5.20); LYMPHOCYTES PERCENT AUTO 3 % (21-46); MONOCYTES ABSOLUTE AUTO 0.64 K/mm3 (0.16-1.47); MONOCYTES PERCENT AUTO 6 % (4-13); Mean Corpuscular HGB 29.4 pg (26.0-34.0); Mean Corpuscular HGB Conc 31.6 g/dL (31.5-36.5); Mean Corpuscular Volume 93 fL (80-100); Mean Platelet Volume 11.5 fL (9.1-12.4); NEUTROPHILS PERCENT AUTO 90 % (41-73); NRBC ABSOLUTE 0.06 K/mm3 (0.00-0.02); NRBC Auto 0.6 /100 WBC (0.0-0.2); Platelet Count 59 K/mm3 (150-400); RDW Standard Deviation 56.5 fL (35.1-46.3); Red Blood Cell Count 2.31 M/mm3 (3.80-5.20); White Blood Cell Count 10.81 K/mm3 (4.00-11.30)
[2021-04-23 04:15] LABS: Albumin, Blood 1.2 g/dL (3.4-5.0); Anion Gap 4 mmol/L (6-16); Blood Urea Nitrogen 71 mg/dL (8-24); Bun/Creatinine Ratio 28.9 (12.0-20.0); CO2, Blood 30 mmol/L (21-32); Calcium, Blood 8.4 mg/dL (8.5-10.1); Chloride, Blood 111 mmol/L (98-108); Creatinine, Blood 2.46 mg/dL (0.40-1.00); Glomerular Filtration Rate 20 (60-); Glucose, Blood 134 mg/dL (70-99); Phosphorus, Blood 4.6 mg/dL (2.5-4.9); Potassium, Blood 3.5 mmol/L (3.5-5.5); Sodium, Blood 145 mmol/L (136-145); Triglycerides 163 mg/dL (30-160)
--- NOTE | 2021-04-23 06:03 | NUR ---
SUMMARY NEURO, STILL SEDATED. TURNED KETAMINE DOWN PER ORDERD RATE. VERSED AT 4MG/HR. PERRL 4MM. SLUGGISH CV NSR, SOME HYPOTENSION OVERNIGHT BUT GETTIING 1 UNIT PRBC'S AND IS IMPROVING. MAP >65 ALL NIGHT. RESP. MINIMAL PATINO SECRETIONS, TOLERATED PRONING. DIMINISHED LUNG SOUNDS. ORAL CARE Q4H. SPO2 HAS BEEN IMPROVING. CURRENTLY 95%. GI, TF AT GOAL, RECTAL TUBE PATENT IN PLACE. 300ML OUT. DARK BROWN/GREEN COLOR. . >3L OUT FOR SHIFT. PT RECEIVED LASIX AT MIDNIGHT. CLEAR YELLOW. SKIN INTACT. RIJ NOT MUCH DRAINAGE TONIGHT PREVIOUS NIGHT. PG FLUSHES AND DRAWS, PICC INFUSING MEDS. BUTTOCKS EXCORIATION IMPROVING.
--- NOTE | 2021-04-23 07:15 | NUR ---
Assumed care of pt at 0700 from Graeme BARAJAS. Drips: Ketamine 0.8 mg/kg/hr Versed 4 mg/hr ETT: 8.0 cm, 24 cm at teeth Vent: ACVC 23/350/14/85% For more details, see shift assessment.
--- NOTE | 2021-04-23 09:43 | NUR ---
UPDATE Vent: ACVC 23/350/14/65%. SpO2 91%.
--- NOTE | 2021-04-23 13:00 | NUR ---
Pt placed supine at noon. Vent settings remained the same. Pt tolerated well. Bedbath complete.
--- NOTE | 2021-04-23 19:22 | NUR ---
SUMMARY Neuro: Ketamine 0.8 mg/kg/hr. Versed 4 mg/hr. Cough and gag present. PERRL. Musculoskeletal: Remains in bilat wrist restraints to prevent self-extubation. Mobility limited by cords, lines, tubes. Plan for pt to prone at 1999. Resp: 8.0 cm, 24 cm at teeth. Vent settings ACVC 23/350/14/80%. SpO2 90% or greater. Small amount of rendon sputum suctioned from ETT. Cardiac: SR per monitor. BP stable. GI: Tube feeds and flushes per orders. Tolerating TF well. 0 mL residual measured at most recent check. Hypoactive BT. Rectal tube remains in place with minimal output this shift. : Marie catheter in place has excellent output of urine this shift. Urine clear and yellow. Skin: Ecchymotic on chest. RIJ continues to bleed. No signs of pressure injury. Pscyh: Pt's daughter visited today. Updated on plan of care by this RN and Dr Kuo.
--- NOTE | 2021-04-23 20:57 | NUR ---
ASSUMPTION OF CARE PT REMAINS INTUBATED, VENT SETTINGS AC 23/350/14/80% WITH SPO2 >92%. PT RECEIVING VERSED 4MCG/HR, AND KETAMINE 0.8MCG/KG/HR. PT OCCASIONALLY MOVES HEAD SIDE TO SIDE BUT OTHERWISE DOES NOT MAKE PURPOSEFUL MOVEMENTS. KETAMINE INCREASED TO 0.9MCG/KG/HR BEFORE PRONATION. TUBE FEEDING CONTINUES TO INFUSE AT GOAL RATE VIA OGT. DIALYSIS PORT SITE CONTINUES TO OOZE BLOOD. DURING DRESSING CHANGE, NOTED THAT ONE SIDE OF SUTURES ARE DISCONNECTED. DR CORREA INFORMED, DRESSING REPLACED BUT SITE CONTINUES TO OOZE. PT TOLERATED PRONING WELL. RECTAL TUBE REMAINS IN PLACE. REHMAN REMAINS IN PLACE. SEE SHIFT ASSESSMENT.
[2021-04-24 03:58] LABS: BASOPHILS ABSOLUTE AUTO 0.01 K/mm3 (0.00-0.23); BASOPHILS PERCENT AUTO 0 % (0-2); EOSINOPHILS ABSOLUTE AUTO 0.01 K/mm3 (0.00-0.68); EOSINOPHILS PERCENT AUTO 0 % (0-6); Hematocrit 23.2 % (33.0-51.0); Hemoglobin 7.4 g/dL (11.5-16.0); IMMATURE GRAN PERCENT AUTO 1 % (0-1); LYMPHOCYTES ABSOLUTE AUTO 0.26 K/mm3 (0.84-5.20); LYMPHOCYTES PERCENT AUTO 2 % (21-46); MONOCYTES PERCENT AUTO 4 % (4-13); Mean Corpuscular HGB 29.6 pg (26.0-34.0); Mean Corpuscular HGB Conc 31.9 g/dL (31.5-36.5); Mean Corpuscular Volume 93 fL (80-100); Mean Platelet Volume 11.3 fL (9.1-12.4); NEUTROPHILS ABSOLUTE AUTO 10.58 K/mm3 (1.96-9.15); NEUTROPHILS PERCENT AUTO 92 % (41-73); NRBC ABSOLUTE 0.12 K/mm3 (0.00-0.02); Platelet Count 75 K/mm3 (150-400); RDW Coefficient Variation 17.2 % (11.7-14.2); White Blood Cell Count 11.46 K/mm3 (4.00-11.30)
[2021-04-24 04:17] LABS: Albumin, Blood 1.3 g/dL (3.4-5.0); Albumin/Globulin Ratio 0.3 (0.8-1.8); Bilirubin, Total 0.4 mg/dL (0.1-1.0); Bun/Creatinine Ratio 31.9 (12.0-20.0); Calcium, Blood 8.4 mg/dL (8.5-10.1); Creatinine, Blood 2.38 mg/dL (0.40-1.00); Globulin, Blood 4.5 g/dL (2.2-4.0); Magnesium, Blood 1.8 mg/dL (1.6-2.4); Phosphorus, Blood 4.9 mg/dL (2.5-4.9); Potassium, Blood 3.6 mmol/L (3.5-5.5); Total Protein, Blood 5.8 g/dL (6.4-8.2)
[2021-04-24 04:44] LABS: PCO2 Arterial 59.9 mmHg (35-45); PO2 Arterial 63.1 mmHg (80-100); pH Blood Arterial 7.27 (7.35-7.45)
--- NOTE | 2021-04-24 05:48 | NUR ---
SHIFT SUMMARY PT REMAINS INTUBATED, VENT SETTINGS AC 23/350/14/65% WITH SPO2 >91%. PT RECEIVING KETAMINE 0.6MCG/KG/HR AND VERSED 3MG/HR, PT APPEARS COMFORTABLY SEDATED. HR REMAINS IN 90S, NSR WITH OCCASIONAL PVCS. SBP 100S-110S. TUBE FEED CONTINUES TO INFUSE AT GOAL RATE, 0 RESIDUALS THROUGHOUT SHIFT. BOWEL TONES ACTIVE X4. RECTAL TUBE OUTPUT OF 400ML DARK BROWN STOOL THIS SHIFT. REHMAN REMAINS IN PLACE, SHIFT OUTPUT OF 850ML CLEAR/YELLOW URINE. CRITICAL PH OF 7.[address] CORREA INFORMED AND RECEIVED ORDER FOR BICARB. WILL REPORT TO ONCOMING RN.
--- NOTE | 2021-04-24 07:37 | NUR ---
Assumed care of pt at 0700. Report received from Rosanne BARAJAS and Titi RN. ETT: 8.0 cm, 24 cm at teeth Vent: ACVC 23/350/14/55%. SpO2 90% Drips: Ketamine 0.6 mg/kg/hr Versed 3 mg/hr Sodium Bicarb 8.4% 75 mL/hr
--- NOTE | 2021-04-24 15:16 | NUR ---
Had a open and holistic conversation with patients daughter she has three children and they will make a decision together. She had many questions. We reviewed her medical conditions. Daughter states she beat colon cancer ten years ago. She also stated she recently had a scan theat her doctor advised she has a fatty liver and some small esophageal varricies. We discussed getting a trach and prison rehab and how her life will not be the same. We dicusses the risks we discussed prognosis and how the the trach may only get her a little time. They are second guessing themselves. They always though the wanted to keep her going no matter what. Now they fear they are causing suffering. Gave her our card and advised we will help with a fmily meeting this weekend if they want. updated desulphurizer operator and RN.
--- NOTE | 2021-04-24 19:21 | NUR ---
SUMMARY Neuro: Versed discontinued by Dr Kuo. Ketamine has been on standby since 164. Pt has cough and gag. Does not open eyes spontaneously or to verbal stimulus. Minimal movement noted to BUE and BLE. Pupils 3 mm. PERRL. Scleral edema noted. Musculoskeletal: Pt switched from prone to supine at 1200. Pt requires Q2H repositioning from staff. Mobility limited by cords, lines, tubes, sedation. Respiratory: 8.0 cm ETT, 24 cm at teeth. Vent settings ACVC 23/350/14/100%. SpO2 95%. Lungs clear, dim in bases. No sputum suctioned from ETT this shift. Cardiac: SR per monitor with occasional PVCs. BP stable. 2+ edema BUE and BLE. 1+ radial, pedal, and posttibial pulses. Distant heart sounds. GI: Nepro at 34 mL per hour. 100 mL water flush Q4H. Volume of flush increased by Dr Kuo due to hypernatremia. 0 mL residual measured this shift. Hypoactive BT. No signs of ABD tenderness with palpation. Rectal tube to gravity drain. No new output this shift. : Marie catheter in place, patent and draining clear yellow urine. Excellent urine output this shift. Dialysis catheter removed from RIJ this shift. Skin: No changes to previously documented skin assessment with exception of absence of RIJ catheter- now dressed with sterile gauze and tegaderm. Dressing C/D/I. Psych: CHRISTIANO due to intubation and sedation. Pt's daughter, Bouchra, visited at bedside today. She also met with Sury BARAJAS from palliative care.
[2021-04-25 04:20] LABS: BASOPHILS ABSOLUTE AUTO 0.02 K/mm3 (0.00-0.23); BASOPHILS PERCENT AUTO 0 % (0-2); EOSINOPHILS ABSOLUTE AUTO 0.01 K/mm3 (0.00-0.68); EOSINOPHILS PERCENT AUTO 0 % (0-6); Hematocrit 21.1 % (33.0-51.0); Hemoglobin 6.8 g/dL (11.5-16.0); IMMATURE GRAN ABSOLUTE AUTO 0.15 K/mm3 (0.00-0.10); IMMATURE GRAN PERCENT AUTO 1 % (0-1); LYMPHOCYTES ABSOLUTE AUTO 0.41 K/mm3 (0.84-5.20); LYMPHOCYTES PERCENT AUTO 4 % (21-46); MONOCYTES ABSOLUTE AUTO 0.46 K/mm3 (0.16-1.47); MONOCYTES PERCENT AUTO 4 % (4-13); Mean Corpuscular HGB 30.2 pg (26.0-34.0); Mean Corpuscular HGB Conc 32.2 g/dL (31.5-36.5); Mean Corpuscular Volume 94 fL (80-100); Mean Platelet Volume 11.6 fL (9.1-12.4); NEUTROPHILS ABSOLUTE AUTO 10.32 K/mm3 (1.96-9.15); NEUTROPHILS PERCENT AUTO 91 % (41-73); NRBC ABSOLUTE 0.19 K/mm3 (0.00-0.02); NRBC Auto 1.7 /100 WBC (0.0-0.2); Platelet Count 95 K/mm3 (150-400); RDW Coefficient Variation 17.7 % (11.7-14.2); RDW Standard Deviation 58.7 fL (35.1-46.3); Red Blood Cell Count 2.25 M/mm3 (3.80-5.20); White Blood Cell Count 11.37 K/mm3 (4.00-11.30)
[2021-04-25 04:43] LABS: Calcium, Blood 8.1 mg/dL (8.5-10.1); Creatinine, Blood 2.16 mg/dL (0.40-1.00); Phosphorus, Blood 4.8 mg/dL (2.5-4.9); Potassium, Blood 3.5 mmol/L (3.5-5.5)
[2021-04-25 05:49] LABS: PCO2 Arterial 66.7 mmHg (35-45); PO2 Arterial 89.9 mmHg (80-100)
[2021-04-25 05:50] LABS: pH Blood Arterial 7.27 (7.35-7.45)
--- NOTE | 2021-04-25 06:15 | NUR ---
END OF SHIFT SUMMARY: PATIENT WAS PRONED AT 1999 AND DID GREAT. NO DESAT ISSUES WHEN TURNING. ACVC 23/350/14/90%. PATIENT HAD A CRITICAL PH OF 7.27 THIS MORNING THAT WAS UNCHANGED FROM YESTERDAY. SHE HAS REMAINED IN SR WITH OCCASSIONAL PVC'S. BP HAS BEEN STABLE. KETAMINE IS INFUSING WELL SODIUM BICARB. PATIENT IS UNABLE TO FOLLOW COMMANDS AT THIS TIME AND DOES NOT REALLY DO ANYTHING NEUROLOGICALLY AT THIS TIME. SHE DOES HAS A POSITIVE COUGH & GAG. PATIENT REMAINS RESTRAINED ALTHOUGH COULD PROBBALY BE DC'D TODAY DUE TO LACK OF MOVEMENT IN EXTREMITIES. 700 URINE OUTPUT. RECTAL TUBE INTACT AND DRAINING. DISCUSSIONS OF TRACH/PEG STARTED YESTERDAY
--- NOTE | 2021-04-25 07:46 | NUR ---
Assumed care of pt at 0700. Report received from Anne Lee. ETT: 8.0 cm, 24 cm at teeth. Vent: ACVC 23/350/14/90%. Drips: Ketamine 0.5 mg/kg/hr Sodium Bicarb 8.4% 75 mL/hr
--- NOTE | 2021-04-25 13:00 | NUR ---
ETT: 8.0 cm, 24 cm at teeth. Vent: ACVC 23/350/14/85%. Drips: Ketamine - STANDBY Sodium Bicarb 8.4% 100 mL/hr Patient changed from prone position to supine position with pillows beneath right side of body. Tolerated reposition well. Pt received bedbath. Hair shampooed, combed, braided. Rectal tube repositioned. Nystatin cream and miconazole powder applied to patient as appropriate. Pt's daughter is in room, visiting at this time.
--- NOTE | 2021-04-25 17:37 | NUR ---
SUMMARY Neuro: Pt has been off sedation since she was placed supine. More sensitive to stimulus but does not open eyes spontaneously or follow commands. Minimal movement noted to extremities. 3 mm pupils. PERRL. Scleral edema noted. Musculoskeletal: Mobility limited by cords, lines, sedation. Requires Q2H repositioning. Respiratory: 8.0 cm ETT, 24 cm at teeth. Lungs clear, diminished in bases. No secretions suctioned from ETT. Vent settings ACVC 23/350/14/100%. Cardiac: SR per monitor. BP stable. Distant heart sounds. 2+ edema BUE and BLE. Capillary refill less than 3 seconds BUE. Mottling noted BLE- Dr Kuo aware. 1+ radial, pedal, posttibial pulses. Pt receiving 1 unit PRBC for low H&H. Plan to check H&H post transfusion. GI: OG tube with 35 mL/hr Nepro and 100 mL water flush Q4H. Discussed increasing hypernatremia with Dr Kuo. Plan to keep flushes same at this time. 0 mL residual measured today. Rectal tube removed due to minimal drainage into collection bag with leakage around insertion site. Pt had medium sized BM immediately following removal. Stool thick and sticky, may not be compatible with rectal tube use. Plan to keep rectal tube out at this time. : Marie catheter in place with excellent output of clear, yellow urine. Pt responded well to lasix. Skin: Ecchymosis persists. Site of dialysis catheter removal on 04/24 is stable and has surprisingly little bleeding. Redness to perineal area persists. Red and excoriated in breast folds. Nystatin cream and miconazole powder ordered today. Psychosocial: Pt's daughter, Elyse, visited at bedside today. Update provided.
[2021-04-25 19:05] LABS: Hematocrit 25.5 % (33.0-51.0); Hemoglobin 8.1 g/dL (11.5-16.0)
--- NOTE | 2021-04-25 22:05 | NUR ---
ASSUMED CARE AT 1900 PT LAYING IN BED INTUBATED WITH VENT SETTINGS AC 23/350/14/100%; SMALL AMOUNT OF THICK PATINO SECREATIONS FROM ETT. BEFORE KETAMINE WAS RESTARTED UNDER DR JEREZ INSTRUCTIONS; PT NOT HAVING PURPOSEFUL MOVEMENT, AND NOT REACTIVE TO VERBAL STIMULI; ALSO ASYNCHRONOUS WITH THE VENT AT THIS TIME; KETAMINE NOW INFUSING AT TITRATED UP TO 0.6MCG/KG/HR; COUGH PRESENT, GAG WEAK. HR 80-90'S. SBP 90-110. NEPRO INFUSING VIA OG AT GOAL. REHMAN IN PLACE AND DRAINING TO GRAVITY. BICARB INFUSING AT 100ML/HR. SEE SHIFT ASSESSMENT FOR FULL ASSESSMENT.
[2021-04-26 04:15] LABS: BASOPHILS ABSOLUTE AUTO 0.02 K/mm3 (0.00-0.23); BASOPHILS PERCENT AUTO 0 % (0-2); EOSINOPHILS ABSOLUTE AUTO 0.03 K/mm3 (0.00-0.68); EOSINOPHILS PERCENT AUTO 0 % (0-6); Hematocrit 24.2 % (33.0-51.0); Hemoglobin 7.7 g/dL (11.5-16.0); IMMATURE GRAN ABSOLUTE AUTO 0.11 K/mm3 (0.00-0.10); IMMATURE GRAN PERCENT AUTO 1 % (0-1); LYMPHOCYTES ABSOLUTE AUTO 0.32 K/mm3 (0.84-5.20); LYMPHOCYTES PERCENT AUTO 3 % (21-46); MONOCYTES ABSOLUTE AUTO 0.38 K/mm3 (0.16-1.47); MONOCYTES PERCENT AUTO 4 % (4-13); Mean Corpuscular HGB 29.6 pg (26.0-34.0); Mean Corpuscular HGB Conc 31.8 g/dL (31.5-36.5); Mean Corpuscular Volume 93 fL (80-100); Mean Platelet Volume 11.7 fL (9.1-12.4); NEUTROPHILS ABSOLUTE AUTO 8.68 K/mm3 (1.96-9.15); NEUTROPHILS PERCENT AUTO 91 % (41-73); NRBC ABSOLUTE 0.23 K/mm3 (0.00-0.02); NRBC Auto 2.4 /100 WBC (0.0-0.2); Platelet Count 97 K/mm3 (150-400); RDW Coefficient Variation 17.6 % (11.7-14.2); White Blood Cell Count 9.54 K/mm3 (4.00-11.30)
[2021-04-26 04:43] LABS: Bun/Creatinine Ratio 42.6 (12.0-20.0); Calcium, Blood 8.1 mg/dL (8.5-10.1); Creatinine, Blood 2.04 mg/dL (0.40-1.00); Potassium, Blood 3.2 mmol/L (3.5-5.5)
--- NOTE | 2021-04-26 06:22 | NUR ---
END OF SHIFT SUMMARY NO ACUTE EVENTS OVERNIGHT. PT CONT TO BE INTUBATED WITH VENT SETTINGS AC 24/350/14/80%; PRONED SINCE 2099; SMALL-MODERATE AMOUNT OF THICK SECREATIONS FROM ETT NOTED. KETAMINE INFUSING AT 0.6MCG/KG/HR; PT NOT REACTIVE TO VERBAL STIMULI; OCCATIONALLY ASYNCHRONOUS WITH VENT WHEN BEING REPOSITIONED; WEAK GAG, STRONG COUGH. AFEBRILE. HR 80-90'S. SBP 100-115; MAP >65. NEPRO INFUSING AT GOAL VIA OG WITH MINIMAL RESIDUALS. REHMAN IN PLACE AND DRAINING TO GRAVITY. BICARB INFUSING AT 100ML/HR. HOSPITALIST CALLED REGARDING POTASSIUM LAB OF 3.2 THIS AM; NEW ORDERS PROVIDED FOR 20MEQ OF KCL IV X1. WILL REPORT TO AM RN WHEN AVAILABLE.
--- NOTE | 2021-04-26 10:00 | NUR ---
CARE ASSUMED ASSESSMENTS COMPLETED, PT PRONE, SEDATED WITH KETAMINE 0.6MG/KG/HR, VENT AC 23, Vt 350, PEEP 14, FIO2 80%. RR 25, SPO2 97%, PEAK PRESSURE 35-50. LS DIMINISHED BUT CLEAR, SMALL AMOUNT LIGHT PATINO SECRETIONS FROM ETT. HR 90'S SINUS, BP STABLE. PT GRIMACES DURING ORAL CARE, GAG AND COUGH PRESENT, NO PURPOSEFUL MOVEMENT OR TRACKING NOTED AT THIS TIME. SCLERAL AND PERIORBITAL EDEMA PRESENT, RAFFAELE, SLUGGISH. TF INFUSING AT GOAL VIA OGT, PT HAD AN XL BROWN LIQUID BM DURING ASSESSMENT, RECTAL TUBE REINSERTED. REHMAN PATENT AND DRAINING, GOOD OUTPUT. EDEMA PRESENT TO ALL EXTREMS, PERIPHERAL PULSES FAINT. SKIN PALE BUT DRY, EXTREMS COOL. SKIN RED IN FOLDS, RAW UNDER R BREAST, EXCORIATED IN PETR AREA AND AROUND RECTUM. SKIN CARE COMPLETED. DRIED BLOOD NOTED IN R EAR, WILL NOTIFY DR. PT BECAME ASYNCHRONOUS WITH VENT, VENT SETTINGS CHANGED BY DR. CORREA TO AC VC+ 25, Vt 300, PEEP 14, FIO2 80%, Ti 0.9, PT TOLERATING NEW SETTINGS WELL. SPO2 MID 90'S.
--- NOTE | 2021-04-26 13:00 | NUR ---
UPDATE PT REPOSITIONED TO SUPINE, SPO2 DECREASED TO 83% BUT RECOVERED AFTER A FEW MINUTES TO LOW 90'S. FIO2 AT THIS TIME 70%, PT REMAINS IN AC VC+ VENT MODE WITH SETTINGS UNCHANGED, TOLERATING WELL WITH NO ASYNCHRONY. DAUGHTER IN TO VISIT, GIVEN UPDATE.
[2021-04-26 15:01] LABS: PCO2 Arterial 58.6 mmHg (35-45); PO2 Arterial 61.5 mmHg (80-100); pH Blood Arterial 7.39 (7.35-7.45)
--- NOTE | 2021-04-26 17:08 | NUR ---
SEDATION VACATION KETAMINE STOPPED FOR SEDATION VACATION, PT BECAME ASYNCHRONOUS WITH VENT, STACKING BREATHS, RR 35. PT REMAINED WITHOUT PURPOSE, DID NOT OPEN EYES, TRACK, OR ATTEMPT TO FOLLOW COMMANDS, NO MOVEMENT IN EXTREMS. CONTINUED TO GRIMACE DURING ORAL CARE, NO OTHER RESPONSES NOTED. KETAMINE INFUSION RESUMED AT PREVIOUS RATE, ASYNCHRONY RESOLVED. VENT REMAINS AC VC+ 25, Vt 300, PEEP 14, FIO2 70%, ATTEMPTED TO DECREASE FIO2 BUT SPO2 DROPPED. SPO2 CURRENTLY 91%. OTHER VSS, HR SINUS WITH PVC'S. PT TO REMAIN SUPINE T/O NIGHT.
[2021-04-27 03:30] LABS: PCO2 Arterial 67.4 mmHg (35-45); PO2 Arterial 61.1 mmHg (80-100); pH Blood Arterial 7.37 (7.35-7.45)
[2021-04-27 04:41] LABS: BASOPHILS PERCENT AUTO 0 % (0-2); EOSINOPHILS PERCENT AUTO 0 % (0-6); Hematocrit 23.8 % (33.0-51.0); Hemoglobin 7.6 g/dL (11.5-16.0); IMMATURE GRAN ABSOLUTE AUTO 0.09 K/mm3 (0.00-0.10); IMMATURE GRAN PERCENT AUTO 2 % (0-1); LYMPHOCYTES ABSOLUTE AUTO 0.36 K/mm3 (0.84-5.20); LYMPHOCYTES PERCENT AUTO 6 % (21-46); MONOCYTES ABSOLUTE AUTO 0.27 K/mm3 (0.16-1.47); MONOCYTES PERCENT AUTO 5 % (4-13); Mean Corpuscular HGB 29.9 pg (26.0-34.0); Mean Corpuscular HGB Conc 31.9 g/dL (31.5-36.5); Mean Corpuscular Volume 94 fL (80-100); Mean Platelet Volume 11.7 fL (9.1-12.4); NEUTROPHILS ABSOLUTE AUTO 5.01 K/mm3 (1.96-9.15); NEUTROPHILS PERCENT AUTO 87 % (41-73); NRBC ABSOLUTE 0.18 K/mm3 (0.00-0.02); NRBC Auto 3.1 /100 WBC (0.0-0.2); Platelet Count 84 K/mm3 (150-400); RDW Coefficient Variation 17.8 % (11.7-14.2); RDW Standard Deviation 57.8 fL (35.1-46.3); Red Blood Cell Count 2.54 M/mm3 (3.80-5.20); White Blood Cell Count 5.73 K/mm3 (4.00-11.30)
[2021-04-27 05:06] LABS: Bun/Creatinine Ratio 50.8 (12.0-20.0); Calcium, Blood 8.1 mg/dL (8.5-10.1); Creatinine, Blood 1.77 mg/dL (0.40-1.00); Magnesium, Blood 1.9 mg/dL (1.6-2.4); Phosphorus, Blood 4.5 mg/dL (2.5-4.9); Potassium, Blood 3.2 mmol/L (3.5-5.5)
--- NOTE | 2021-04-27 06:46 | NUR ---
END OF SHIFT SUMMARY: PATIENT STILL NOT FOLLOWING COMMANDS OR WAKING UP MUCH. KETAMINE REMAINS INFUSING. PLAN FOR TRACH TODAY IF POSSIBLE. CHARGE NURSE AWARE OF INCREASED O2 REQUIREMNTS SHE IS NOW ON 90% FIO2. MINIMAL SECRETIONS THROUGH ETT. HEPARIN HELD AT 0000 WELL TUBE FEEDS. GREAT URINE OUTPUT. 20 K IV INFUSING GOR A 3.2 K ON MORNING LABS. RESTRAINTS REMAIN ON
--- NOTE | 2021-04-27 08:23 | NUR ---
CARE ASSUMED ASSESSMENTS COMPLETED, PT REMAINS INTUBATED, SEDATED WITH KETAMINE 0.6MG/KG/HR. NO NEURO CHANGES NOTED, PT ONLY GRIMACES DURING ORAL CARE, NO PURPOSEFUL MOVEMENT OR TRACKING. VENT AC VC+ 25, Vt 300, PEEP 14, FIO2 90%, Ti 0.9. LS CLEAR, DIMINISHED, SCANT LIGHT YELLOW ETT SECRETIONS. RR 25, PEAK PRESSURE 30'S, SPO2 LOW 90'S, NO VENT ASYNCHRONY. HR 80'S SINUS, BP STABLE WITH MAPS 70'S. R FOOT MOTTLED ON THE BOTTOM, CAP REFILL IN BLE'S SLUGGISH, 2+ EDEMA BILAT HANDS, 1+ EDEMA BLE'S, PERIPHERAL PULSES FAINT. REHMAN AND RECTAL TUBES REMAIN IN PLACE, BOTH PATENT AND DRAINING TO GRAVITY. SKIN CARE PROVIDED. OGT CLAMPED, ORAL MED AND HEPARIN HELD FOR PENDING TRACHEOSTOMY.
--- NOTE | 2021-04-27 10:13 | NUR ---
UPDATE DR. PHILLIPS AND DR. MARTINEZ AT BEDSIDE, NO TRACH PLACEMENT TODAY D/T INCREASING O2 DEMAND, WILL REASSESS LATER THIS WEEK. DR. PHILLIPS NOTIFIED OF DRY BLOOD IN PT'S R EAR, NO ACTIVE BLEEDING PER DR. PHILLIPS AFTER ASSESSMENT, NO NEW ORDERS AT THIS TIME. HEPARIN AND PO VITAMIN D ADMINISTERED, TF RESUMED.
--- NOTE | 2021-04-27 12:00 | NUR ---
Upon receiving a request via a phone call from patient's NeMarcella valentin, I visit patient. Marcella asked that I provide prayer and encouragement to patient which I gladly did. Patient moves her foot a couple of times while I was in the rm but other than that patient shows no signs of connection to the interventions. I will continue to remain available to Stact and the family.
--- NOTE | 2021-04-27 16:08 | NUR ---
Spiritual care visit conducted. Patient is lying in bed and patient's daughter, Bouchra, is bedside. I conduct a life review of patient and learn about the family dynamics within the family (1 son 2 duaghters and 6 grandchildren). Bouchra tells me that her sister and her are the medical decision makeers for the patient and she tells me that they both aree that they want everything done until there is no hope of recovery. She says that her mom has incredible heart and drive and she wants to present every opppotunity for the patient to fight. We discuss their openness to religions and that they have not landed on one at this time. Family is want inspires the patient. I provide a calming presence, emotional support and therapeutic listening. Bouchra responds well and shows signs of having an increase in peace. I will continue to remain available to patient and fmaily.
--- NOTE | 2021-04-27 18:31 | NUR ---
END OF SHIFT FIO2 TITRATED UP THIS SHIFT FOR SPO2 MID 80'S, FIO2 CURRENTLY 95% WITH SPO2 93%, OTHER VENT SETTINGS UNCHANGED. KETAMINE OFF X1 HOUR THIS EVENING FOR SEDATION VACATION DURING WHICH TIME PT WAS BATHED AND REPOSITIONED, NO CHANGES NOTED IN NEURO STATUS, GRIMACING DURING ORAL CARE ONLY. SEDATION RESUMED FOR VENT ASYNCHRONY, STACKING, AND RR 30'S. THIS RN WITNESSED PT MOVE RLE ONCE THIS SHIFT, NO OTHER NEURO STATUS CHANGES TODAY. LS DIMINISHED, INTERMITTENTLY COARSE, SECRETIONS DECREASED THIS EVENING AND ARE NOW WHITE. BICARB INFUSING PER ORDERS, KETAMINE REMAINS 0.6MG/KG/HR.
[2021-04-28 03:25] LABS: BASOPHILS ABSOLUTE AUTO 0.01 K/mm3 (0.00-0.23); BASOPHILS PERCENT AUTO 0 % (0-2); EOSINOPHILS ABSOLUTE AUTO 0.02 K/mm3 (0.00-0.68); EOSINOPHILS PERCENT AUTO 0 % (0-6); Hematocrit 25.5 % (33.0-51.0); IMMATURE GRAN ABSOLUTE AUTO 0.06 K/mm3 (0.00-0.10); IMMATURE GRAN PERCENT AUTO 1 % (0-1); LYMPHOCYTES ABSOLUTE AUTO 0.27 K/mm3 (0.84-5.20); LYMPHOCYTES PERCENT AUTO 3 % (21-46); MONOCYTES ABSOLUTE AUTO 0.26 K/mm3 (0.16-1.47); MONOCYTES PERCENT AUTO 3 % (4-13); Mean Corpuscular HGB Conc 31.4 g/dL (31.5-36.5); Mean Corpuscular Volume 96 fL (80-100); Mean Platelet Volume 11.9 fL (9.1-12.4); NEUTROPHILS ABSOLUTE AUTO 7.54 K/mm3 (1.96-9.15); NEUTROPHILS PERCENT AUTO 93 % (41-73); NRBC ABSOLUTE 0.18 K/mm3 (0.00-0.02); NRBC Auto 2.2 /100 WBC (0.0-0.2); Platelet Count 104 K/mm3 (150-400); RDW Coefficient Variation 18.4 % (11.7-14.2); RDW Standard Deviation 57.6 fL (35.1-46.3); Red Blood Cell Count 2.67 M/mm3 (3.80-5.20); White Blood Cell Count 8.16 K/mm3 (4.00-11.30)
[2021-04-28 03:30] LABS: Bicarbonate Venous 39.6 mmol/L (24.0-30.0); PO2 Venous 46.7 mmHg (38-42)
[2021-04-28 03:42] LABS: Albumin, Blood 1.2 g/dL (3.4-5.0); Anion Gap 4 mmol/L (6-16); Blood Urea Nitrogen 89 mg/dL (8-24); Bun/Creatinine Ratio 53.9 (12.0-20.0); CO2, Blood 42 mmol/L (21-32); Chloride, Blood 101 mmol/L (98-108); Creatinine, Blood 1.65 mg/dL (0.40-1.00); Glomerular Filtration Rate 32 (60-); Glucose, Blood 174 mg/dL (70-99); Phosphorus, Blood 4.1 mg/dL (2.5-4.9); Sodium, Blood 147 mmol/L (136-145)
--- NOTE | 2021-04-28 06:30 | NUR ---
END OF SHIFT SUMAMRY: NO ACUTE CHANGES OVERNIGHT. ACVC+ 23/350/14/100%. VERY MINIMAL SECRETIONS FROM ETT. SHE IS NOT TOLERATING LYING FLAT OR REPOSITIONING WELL. SHE WILL DESAT AND TAKE AWHILE TO RECOVER. SHE IS 90% ON THOSSE SETTINGS. SR WITH OCCAIONAL PVC'S. BP STABLE BUT MORE LABILE THIS MORNING. KETAMINE HAS BEEN TITRATED DOWN AND IS ONLY INFUSING AT 0.2. +COUGH/GAG BUT STILL NO WAKING UP OR MOVING EXTREMITIES. RESTRAINTS REMAIN ON. K 3.0 THIS AM AND 40KCL TO BE REPLEATED. GREAT URINE OUTPUT.
--- NOTE | 2021-04-28 08:00 | NUR ---
ASSUMING CARE OF PT RESP: ON VENT SETTINGS AC 25/300/14/100% LOC: +GAG + COUGH DOES NOT FOLLOW COMMANDS SEDATED WITH .1MG/KG/HR KETAMINE CARDIO: B/P IN THE 80'S SPOKE TO DR. CORREA PLAN TO START LEVOPHED GI: TUBE FEDDING AT GOAL, RECTAL TUBE IN PLACE : REHMAN TO GRAVITY- VERFIFIED WITH DR. CORREA REGARDING LASIX AND LOW B/P STATE TO GIVE LASIX SKIN: SCATTERED BRUSING RIGHT NECK AND ABDOMEN. RESTRAINTS ON SKIN ASSESSED
--- NOTE | 2021-04-28 17:50 | NUR ---
SUMMERY OF CARE RESP: ATTEMPTED TO WEAN FIO2 TO 80% PT DID NOT TOLERATE. BACK UP TO 100% CARDIO: LEVOPHED STARTED TO MAINTAIN MAP >60 GENERALIZED EDEMA +2 NO OTHER CHANGES
[2021-04-29 03:41] LABS: BASOPHILS ABSOLUTE AUTO 0.01 K/mm3 (0.00-0.23); BASOPHILS PERCENT AUTO 0 % (0-2); EOSINOPHILS PERCENT AUTO 0 % (0-6); Hematocrit 24.8 % (33.0-51.0); Hemoglobin 7.5 g/dL (11.5-16.0); IMMATURE GRAN ABSOLUTE AUTO 0.07 K/mm3 (0.00-0.10); IMMATURE GRAN PERCENT AUTO 1 % (0-1); LYMPHOCYTES ABSOLUTE AUTO 0.44 K/mm3 (0.84-5.20); LYMPHOCYTES PERCENT AUTO 4 % (21-46); MONOCYTES ABSOLUTE AUTO 0.43 K/mm3 (0.16-1.47); MONOCYTES PERCENT AUTO 4 % (4-13); Mean Corpuscular HGB 29.6 pg (26.0-34.0); Mean Corpuscular HGB Conc 30.2 g/dL (31.5-36.5); Mean Corpuscular Volume 98 fL (80-100); Mean Platelet Volume 11.9 fL (9.1-12.4); NEUTROPHILS ABSOLUTE AUTO 9.83 K/mm3 (1.96-9.15); NEUTROPHILS PERCENT AUTO 91 % (41-73); NRBC ABSOLUTE 0.13 K/mm3 (0.00-0.02); NRBC Auto 1.2 /100 WBC (0.0-0.2); Platelet Count 112 K/mm3 (150-400); RDW Standard Deviation 62.4 fL (35.1-46.3); Red Blood Cell Count 2.53 M/mm3 (3.80-5.20); White Blood Cell Count 10.78 K/mm3 (4.00-11.30)
[2021-04-29 04:03] LABS: Bun/Creatinine Ratio 57.6 (12.0-20.0); Calcium, Blood 7.5 mg/dL (8.5-10.1); Creatinine, Blood 1.58 mg/dL (0.40-1.00); Magnesium, Blood 1.7 mg/dL (1.6-2.4); Phosphorus, Blood 4.6 mg/dL (2.5-4.9); Potassium, Blood 3.5 mmol/L (3.5-5.5)
--- NOTE | 2021-04-29 06:32 | NUR ---
END OF SHIFT SUMMARY: PATIENT PRONED AT 1999. NO ACUTE CHANGES OVERNIGHT. KETAMINE PUT ON STANDBY AT 0430 SINCE HAVING TO GO UP ON LEVOPHED AND PATIENT NOT REALLY WAKING UP AT ALL. SHE IS STILL SYNCING WITH VENT AT THIS TIME. LEVOPED UP TO 5MCG/MIN. GOOD URINE OUTPUT.
--- NOTE | 2021-04-29 07:48 | NUR ---
ASSUMING CARE OF PT RESP: INTUBATED VENT SETTINGS: A/C 25/300/14/100% STATS 94-96% PRONE LOC- + GAG + COOUGH. NO PURPOSEFUL MOVEMENT NOTED. SEDATION OFF SINCE 429 GI: RECTAL TUBE IN PLACE TOLERATED TUBE FEEDS : FERNANDO URINE NOTED IN REHMAN SKIN SCATTERED BRUISING BUE, ABD, NECK MISC: TEMP OF 101 NOTED THIS AM.
--- NOTE | 2021-04-29 15:57 | NUR ---
Review of EMR and case conference with ICU staff re: current status. We have not had any communication with family today re: changes in goals of care. If they do not reach out to staff or us in the next 1-2 days, we will attempt conversation again about longterm outlook/prognosis, quality of life and advanced care planning with pt's daughters.
--- NOTE | 2021-04-29 18:16 | NUR ---
SUMMERY/CHANGES RESP: PT STATS MAINTAINED AT 85% PEEP INCREASED TO 16 FIOZ 100% CARDIO: LEVOPHED UP TO 9, ONE LITER OF LR ORDERED. PLAN TO STILL GIVE PM LASIX PER DR. CORREA FAMILY: DAUGHTER UPDATED POC PRONE TONIGHT,
--- NOTE | 2021-04-29 18:19 | NUR ---
SEDATION: RESTARTED KETAMINE DUE TO WORSENING RESP STATUS- SINCE RESUMMING PT STATS UP TO 91% FROM 85. PREVIOUS KETAMINE GTT WHICH WASTED WITH ALBERTO BARAJAS
--- NOTE | 2021-04-29 20:30 | NUR ---
ASSUMED CARE AT 1900 PT LAYING IN BED INTUBATED WITH VENT SETTINGS AC 25/300/16/100%; PT DESATURATES WITH MOVEMENT; OCCATIONAL COUGH NOTED; THIN WHITE SECREATIONS FROM ETT. PT REACTIVE TO NOXIOUS STIMULI; NO PURPOSEFUL MOVEMENT NOTED; GAG AND COUGH PRESENT; KETAMINE INFUSING AT 0.3MCG/KG/HR. HR 100-115. SBP 90-105; LEVOPHED INFUSING AT 11MCG/MIN; MAP >65. NEPRO INFUSING VIA OG AT GOAL; MINIMAL RESIDUALS. RECTAL TUBE AND REHMAN IN PLACE AND DRAINING TO GRAVITY. SEE SHIFT ASSESSMENT FOR FULL ASSESSMENT. PT PRONED AT 2030 AND TOLERATED FAIRLY. SPO2 AFTER PRONING 89-93%.
[2021-04-29 21:29] LABS: PO2 Arterial 42.7 mmHg (80-100); pH Blood Arterial 7.17 (7.35-7.45)
[2021-04-29 21:56] LABS: Bun/Creatinine Ratio 63.1 (12.0-20.0); Creatinine, Blood 1.68 mg/dL (0.40-1.00); Potassium, Blood 4.2 mmol/L (3.5-5.5)
[2021-04-29 21:57] LABS: Calcium, Blood 10.4 mg/dL (8.5-10.1)
--- NOTE | 2021-04-29 22:39 | NUR ---
CODE BLUE #1 AT 2099 PT HAD BRADYED DOWN WHILE IN PRONE POSITION TO HR 30'S. PT PLACED IN SUPINE POSITION, PT MOTTLED T/O ABD AND ARMS, AND BACKBOARD PLACED. LOST PULSE AT 2110; COMPRESSIONS STARTED. PULSE RETURNED AT 2119. DR DENISE PROVIDED ORDERS POST CODE FOR AND ABG, BMP, LACTATE, AND EKG. FAMILY NOTIFIED AT THIS TIME AND ARRIVED TO HOSPITAL SHORT AFTER. LEVOPHED TITRATED UP TO 20MCG/MIN. SEE CODE BLUE FLOW SHEET FOR DETAILS. CRITICAL VALUES FROM ABG AND LACTIC VERBALLY PROVIDED TO DR DENISE.
--- NOTE | 2021-04-29 22:50 | NUR ---
CODE BLUE #2 FAMILY AT BEDSIDE AND PT BRADYED DOWN AGAIN TO HR 30'S. PULSE LOST AND COMPRESSIONS STARTED AT 2155. HR RESUMED AT 2159, EKG DONE, AND PULSE QUICKLY LOST AGAIN. COMPRESSIONS RESTARTED AGAIN AT 2200. EPI GTT STARTED AND TITRATED UP AND MAXED OUT. LEVOPHED MAXED OUT. PULSE CHECKS FOLLOWING ALL SHOW PEA. FAMILY OUTSIDE OF ROOM. DR DENISE UPDATING FAMILY AND THAN AT BEDSIDE. TOD CALLED AT [address] DENISE. SEE CODE BLUE FLOW SHEET FOR DETAILS. FAMILY NOW AT BED SIDE [facility].
--- NOTE | 2021-04-30 01:02 | NUR ---
END NOTE LETICIA'S DAUGHTERS AND SON LEFT HOSPITAL AROUND 2330. THE DAUGHTERS CUT A BRAID OF HAIR OFF OF LETICIA. [facility] GRICEL BRITT PICKED UP LETICIA AT 0100. MINIMAL BELONGING WENT HOME WITH LETICIA'S DAUGHTER.
== END 2021-04-29 22:25 | DRG 870 ==
LOC: ER 12:41 → PCU 14:52 → SURS 14:52 → PCU 04-08 15:22 → ICUW 04-15 10:18
PROVIDERS: Emergency Medicine; Family Medicine; Internal Medicine; Internal Medicine Critical Care Medicine; Physician Assistant; Student in an Organized Health Care Education/Training Program; ADMIT Hospitalist
PROC: 8E0ZXY6 Isolation (ICD-10-PCS; 2021-04-05)
PROC: XW033E5 Introduction of Remdesivir Anti-infective into Peripheral Vein, Percutaneous Approach, New Technology Group 5 (ICD-10-PCS; 2021-04-05)
PROC: 3E0333Z Introduction of Anti-inflammatory into Peripheral Vein, Percutaneous Approach (ICD-10-PCS; 2021-04-05)
PROC: 5A09557 Assistance with Respiratory Ventilation, Greater than 96 Consecutive Hours, Continuous Positive Airway Pressure (ICD-10-PCS; 2021-04-05)
PROC: 5A1955Z Respiratory Ventilation, Greater than 96 Consecutive Hours (ICD-10-PCS; principal; 2021-04-08)
PROC: 3E043XZ Introduction of Vasopressor into Central Vein, Percutaneous Approach (ICD-10-PCS; 2021-04-08)
PROC: 0BH18EZ Insertion of Endotracheal Airway into Trachea, Via Natural or Artificial Opening Endoscopic (ICD-10-PCS; 2021-04-08)
PROC: 30233N1 Transfusion of Nonautologous Red Blood Cells into Peripheral Vein, Percutaneous Approach (ICD-10-PCS; 2021-04-08)
PROC: 02HV33Z Insertion of Infusion Device into Superior Vena Cava, Percutaneous Approach (ICD-10-PCS; 2021-04-08)
PROC: 02HV33Z Insertion of Infusion Device into Superior Vena Cava, Percutaneous Approach (ICD-10-PCS; 2021-04-12)
PROC: 5A12012 Performance of Cardiac Output, Single, Manual (ICD-10-PCS; 2021-04-28)
DX: A41.89 Other specified sepsis (principal); U07.1 COVID-19; J12.82 Pneumonia due to coronavirus disease 2019; N17.0 Acute kidney failure with tubular necrosis; R65.21 Severe sepsis with septic shock; J96.02 Acute respiratory failure with hypercapnia; I26.99 Other pulmonary embolism without acute cor pulmonale; J44.0 Chronic obstructive pulmonary disease with (acute) lower respiratory infection; J44.1 Chronic obstructive pulmonary disease with (acute) exacerbation; E87.4 Mixed disorder of acid-base balance; D61.818 Other pancytopenia; E03.9 Hypothyroidism, unspecified; D63.1 Anemia in chronic kidney disease; N18.30 Chronic kidney disease, stage 3 unspecified; E11.22 Type 2 diabetes mellitus with diabetic chronic kidney disease; I12.9 Hypertensive chronic kidney disease with stage 1 through stage 4 chronic kidney disease, or unspecified chronic kidney disease; E87.5 Hyperkalemia; E11.65 Type 2 diabetes mellitus with hyperglycemia; D69.59 Other secondary thrombocytopenia; E66.9 Obesity, unspecified; E83.39 Other disorders of phosphorus metabolism; Z78.1 Physical restraint status; E86.0 Dehydration; K21.9 Gastro-esophageal reflux disease without esophagitis; Z85.038 Personal history of other malignant neoplasm of large intestine; Z91.018 Allergy to other foods; Z88.8 Allergy status to other drugs, medicaments and biological substances; Z79.899 Other long term (current) drug therapy
CPT/HCPCS: 31500; 36415; 36430; 36556; 36569; 36600; 51703; 71045; 71260; 80048; 80053; 80069; 80074; 81001; 82330; 82465; 82550; 82728; 82803; 82947; 83036; 83540; 83550; 83605; 83735; 84100; 84145; 84443; 84478; 85014; 85018; 85025; 85027; 85379; 85610; 85651; 85730; 86022; 86140; 86141; 86317; 86850; 86900; 86901; 86923; 87040; 87070; 87205; 87493; 92950; 93005; 93010; 93306; 94002; 94003; 94640; 94660; 94762; 96374-59; 96375-59; 96376-59; 99285-25; A9270; C1751; C1752; C9113; J0171; J0330; J0610; J0696; J0881; J0883; J1100; J1644; J1650; J1815; J1940; J2020; J2060; J2250; J2370; J2543; J2597; J2704; J2765; J3010; J3480; J7030; J7040; J7050; J7060; J7070; J7120; P9016; Q9967